=== PATIENT | male | born 1935 | race Caucasian/White ===

== ENCOUNTER 2018-05-08 17:37 | Inpatient (IN) | payer MEDICARE, MEDICAID ==
--- NOTE | 2018-05-08 18:21 | ED Physician Chart ---
ED Chief Complaint/HPI - Patient Information Date Seen:: 05/08/18 Time Seen:: 18:00 Chief Complaint:: Depression History of Present Illness:: onset x 3 days of depression and sadness; no report of SIs, trauma, H//As, S/T, neck pain, C/P, dyspnea, abd. pain, A/N/V/D/C, fever, chills, or urinary s/s Historian:: Patient, EMS Review:: Nurse's Note Reviewed, Old Chart Reviewed, EMS run form Reviewed <Pancho Rodarte - Last Filed: 05/08/18 18:16> - Patient Information Allergies:: Allergies Allergy/AdvReac Type Severity Reaction Status Date / Time No Known Allergies Allergy Verified 05/08/18 19:14 <Torres Carson - Last Filed: 05/09/18 09:00> ED Review of Systems - Review of Systems General/Constitutional: No fever, No chills, No weight loss, No weakness, No diaphoresis, No edema, No loss of appetite Skin: No skin lesions, No rash, No bruising Head: No headache, No light-headedness Eyes: No loss of vision, No pain, No diplopia ENT: No earache, No nasal drainage, No sore throat, No tinnitus Neck: No neck pain, No swelling, No thyromegaly, No stiffness, No mass noted Cardio Vascular: No chest pain, No palpitations, No PND, No orthopnea, No edema Pulmonary: No SOB, No cough, No sputum, No wheezing GI: No nausea, No vomiting, No diarrhea, No pain, No melena, No hematochezia, No constipation, No hematemesis G/U: No dysuria, No frequency, No hematuria, No nacturia Musculoskeletal: No bone or joint pain, No back pain, No muscle pain Endocrine: No polyuria, No polydipsia Psychiatric: Prior psych history, Depression, No anxiety, No suicidal ideation, No homicidal ideation, No auditory hallucination, No visual hallucination Hematopoietic: No bruising, No lymphadenopathy Allergic/Immuno: No urticaria, No angioedema Neurological: No syncope, No focal symptoms, No weakness, No paresthesia, No headache, No seizure, No dizziness, No confusion, No vertigo <Pancho Rodarte - Last Filed: 05/08/18 18:16> ED Past Medical History - Past Medical History Obtainable: Yes Past Medical History: HTN, Dyslipidemia Family History: HTN Social History: Non Smoker, No Alcohol, No Drug Use, , Care Facility Surgical History: None Psychiatricy History: Depression Medication: Reviewed <Pancho Rodarte - Last Filed: 05/08/18 18:16> Family Medical History - Family Member Mother History Unknown: Yes <Torres Carson - Last Filed: 05/09/18 09:00> ED Physical Exam - Physical Examination General/Constitutional: Awake, Well-developed, well-nourished, Alert, No distress, GCS 15, Non-toxic appearing, Ambulatory Head: Atraumatic Eyes: Lids, conjuctiva normal, PERRL, EOMI Skin: Nl inspection, No rash, No skin lesions, No ecchymosis, Well hydrated, No lymphadenopathy ENMT: External ears, nose nl, TM canals nl, Nasal exam nl, Lips, teeth, gums nl , Oropharynx nl, Tonsils nl Neck: Nontender, Full ROM w/o pain, No JVD, No nuchal rigidity, No bruit, No mass, No stridor Respiratory: Nl effort/Exclusion, Clear to Auscultation, No Wheeze/Rhonchi/Rales Cardio Vascular: RRR, No murmur, gallop, rubs, NL S1 S2, Carotid/Femoral/Distal pulses equal bilaterally GI: No tenderness/rebounding/guarding, No organomegaly, No hernia, Normal BS's, Nondistended, No mass/bruits, No McBurney tenderness : No CVA tenderness Extremities: No tenderness or effusion, Full ROM, normal strength in all extremities, No edema, Normal digits & nails Neuro/Psych: Alert/oriented, DTR's symmetric, Normal sensory exam, Normal motor strength, Judgement/insight normal, Mood normal, Normal gait, No focal deficits Other Neuro/Psych comments:: MSE: + Psychomotor Retardation; no SIs; Mood/Affect: Labile Misc: Normal back, No paraspinal tenderness <Pancho Rodarte - Last Filed: 05/08/18 18:16> ED Labs/Radiology/EKG Results - Lab Results Results: Laboratory Tests 05/08/18 05/08/18 05/08/18 18:30 18:40 18:40 WBC 12.3 H RBC 3.69 L Hgb 11.0 L Hct 32.8 L MCV 89.0 MCH 29.9 MCHC Differential 33.6 RDW 15.8 Plt Count 448 H MPV 6.8 Neutrophils % 62.3 Lymphocytes % 28.6 Monocytes % 5.5 Eosinophils % 2.8 Basophils % 0.8 Sodium 138 Potassium 4.1 Chloride 106 Carbon Dioxide 22.1 Anion Gap 14.0 BUN 57 H Creatinine 2.4 H Est GFR ( Amer) TNP Est GFR (Non-Af Amer) TNP BUN/Creatinine Ratio 23.8 Glucose 147 H Calcium 8.9 Total Bilirubin 0.3 AST 74 H ALT 157 H Alkaline Phosphatase 85 Troponin I 0.01 Total Protein 7.4 Albumin 3.7 L Globulin 3.7 Albumin/Globulin Ratio 1.0 Triglycerides 102 Cholesterol 83 LDL Cholesterol Direct 54 L HDL Cholesterol 26 TSH Urine Source Urine Color Urine Clarity Urine pH Ur Specific [place] Urine Protein Urine Glucose (UA) Urine Ketones Urine Blood Urine Nitrate Urine Bilirubin Urine Urobilinogen Ur Leukocyte Esterase Urine RBC Urine WBC Ur Epithelial Cells Urine Bacteria Salicylates < 25.0 L Urine Opiates Screen Urine Methadone Screen Acetaminophen < 10.0 L Ur Barbiturates Screen Ur Tricyclics Screen Ur Phencyclidine Scrn Amphetamines Screen U Methamphetamines Scrn U Benzodiazepines Scrn U Cocaine Metab Screen U Cannabinoids Screen Ethyl Alcohol < 10 05/08/18 05/08/18 05/08/18 18:40 22:00 22:00 WBC RBC Hgb Hct MCV MCH MCHC Differential RDW Plt Count MPV Neutrophils % Lymphocytes % Monocytes % Eosinophils % Basophils % Sodium Potassium Chloride Carbon Dioxide Anion Gap BUN Creatinine Est GFR ( Amer) Est GFR (Non-Af Amer) BUN/Creatinine Ratio Glucose Calcium Total Bilirubin AST ALT Alkaline Phosphatase Troponin I Total Protein Albumin Globulin Albumin/Globulin Ratio Triglycerides Cholesterol LDL Cholesterol Direct HDL Cholesterol TSH 10.76 H Urine Source CLEAN C Urine Color YELLOW Urine Clarity HAZY Urine pH 5.5 Ur Specific [place] 1.020 Urine Protein NEGATIVE Urine Glucose (UA) NEGATIVE Urine Ketones NEGATIVE Urine Blood TRACE Urine Nitrate NEGATIVE Urine Bilirubin NEGATIVE Urine Urobilinogen 0.2 Ur Leukocyte Esterase MODERATE H Urine RBC 0-2 H Urine WBC 10-25 H Ur Epithelial Cells RARE Urine Bacteria MODERATE H Salicylates Urine Opiates Screen POSITIVE H Urine Methadone Screen NEGATIVE Acetaminophen Ur Barbiturates Screen NEGATIVE Ur Tricyclics Screen NEGATIVE Ur Phencyclidine Scrn NEGATIVE Amphetamines Screen NEGATIVE U Methamphetamines Scrn NEGATIVE U Benzodiazepines Scrn NEGATIVE U Cocaine Metab Screen NEGATIVE U Cannabinoids Screen NEGATIVE Ethyl Alcohol <Torres Carson - Last Filed: 05/09/18 09:00> ED Septic Shock - . Is Septic Shock (SBP<90, OR Lactate>4 mmol\L) present?: No <Pancho Rodarte - Last Filed: 05/08/18 18:16> ED Reassessment (Disposition) - Reassessment Reassessment Condition:: Improved - Diagnosis Diagnosis:: Depression; Medical Clearance <Pancho Rodarte - Last Filed: 05/08/18 18:16> - Reassessment Reassessment:: Due to evidence of UTI and dehydration, ordered NS 1L IV bolus and Rocephin 1g IV. Admit to [facility] for further evaluation and management. UTI will be followed as well. Reassessment Condition:: Improved - Diagnosis Diagnosis:: Leukocytosis Urinary tract infection Dehydration CKD Anemia, normocytic Hypothyroidism - Patient Disposition Discharge/Transfer:: [facility] w/in this hosp Admitting Medical Physician:: Van Camilo Admitting Psych Physician:: Glod Albright <Torres Carson - Last Filed: 05/09/18 09:00>
[2018-05-08 18:56] LABS: % BASOPHILS 0.8 % (0.0-2.0); % EOSINOPHILS 2.8 % (0.0-5.0); % LYMPHOCYTES 28.6 % (20.0-50.0); % MONOCYTES 5.5 % (2.0-10.0); % NEUTROPHILS 62.3 % (40.0-80.0); BASOPHILE ABSOLUTE 0.1 Th/cumm (0-0.2); EOSINOPHILE ABSOLUTE 0.3 Th/cmm (0.1-0.4); HEMATOCRIT 32.8 % (41.0-60); LYMPHOCYTE ABSOLUTE 3.5 Th/cmm (1.5-3.0); MEAN CORPUSCULAR HEMOGLOBIN 29.9 pg (27.0-31.0); MEAN CORPUSCULAR HGB CONC 33.6 pg (28.0-36.0); MEAN PLATELET VOLUME 6.8 fl; MONOCYTE ABSOLUTE 0.7 Th/cmm (0.3-1.0); NEUTROPHILE ABSOLUTE 7.7 Th/cmm (1.8-8.0); PLATELET COUNT 448 Th/cmm (150-400); RED BLOOD COUNT 3.69 Mil/cmm (3.80-5.80); RED CELL DISTRIBUTION WIDTH 15.8 % (11.5-20.0); WHITE BLOOD COUNT 12.3 Th/cmm (4.8-10.8)
[2018-05-08 19:06] LABS: ALBUMIN 3.7 gm/dL (4.2-5.5); ALKALINE PHOSPHATASE 85 U/L (34-104); BILIRUBIN,TOTAL 0.3 mg/dL (0.3-1.0); BUN - UREA NITROGEN 57 mg/dL (7-25); CALCIUM SERUM 8.9 mg/dL (8.6-10.3); CARBON DIOXIDE 22.1 mEq/L (21.0-31.0); CHLORIDE 106 mEq/L (98-107); CHOLESTEROL 83 mg/dL (<200); CREATININE - SERUM 2.4 mg/dL (0.7-1.3); GLUCOSE 147 mg/dL (70-105); HDL -HIGH DENSITY LIPOPROTEIN 26 mg/dL (23-92); POTASSIUM SERUM 4.1 mEq/L (3.5-5.1); SGOT 74 U/L (13-39); SGPT/ALT 157 U/L (7-52); SODIUM SERUM 138 mEq/L (136-145); TOTAL PROTEIN,SERUM 7.4 gm/dL (6.0-8.3); TRIGLYCERIDES 102 mg/dL (<150)
[2018-05-08 19:18] LABS: ACETAMINOPHEN < 10.0 ug/mL (10.0-30.0); SALICYLATES (ASPIRIN) < 25.0 mg/L (30.0-100.0)
[2018-05-08] MEDS ORDERED: Sodium Chloride 0.9% 1,000 ML IV ONE (20:56)
[2018-05-08] MEDS ORDERED: cefTRIAXone 1 GM in Sodium Chloride 0.9% 50 ML IV ONE (20:56)
[2018-05-08 23:20] LABS: URINE SOURCE CLEAN C
[2018-05-08 23:27] LABS: URINE BILIRUBIN NEGATIVE (NEGATIVE); URINE BLOOD TRACE (NEGATIVE); URINE GLUCOSE (UA) NEGATIVE (NEGATIVE); URINE KETONE NEGATIVE (NEGATIVE); URINE LEUKOCYTE ESTERASE MODERATE (NEGATIVE); URINE MICROSCOPIC INDICATED? YES; URINE NITRATE NEGATIVE (NEGATIVE); URINE PH 5.5 (4.6 - 8.0); URINE PROTEIN NEGATIVE (NEGATIVE); URINE UROBILINOGEN 0.2 E.U./dL (0.2 - 1.0)
[2018-05-08 23:31] LABS: URINE CLARITY HAZY (CLEAR); URINE COLOR YELLOW
[2018-05-08 23:33] LABS: URINE RBC 0-2 /hpf (0-5)
[2018-05-08 23:35] LABS: URINE BACTERIA MODERATE /hpf (NONE SEEN); URINE EPITHELIAL CELLS RARE /lpf (FEW)
[2018-05-08 23:36] LABS: AMPHETAMINE URINE NEGATIVE (NEGATIVE); BARBITURATES URINE NEGATIVE (NEGATIVE); BENZODIAZEPINES QUAL URINE NEGATIVE (NEGATIVE); CANNABINOID THC NEGATIVE (NEGATIVE); COCAINE METABOLITE QUAL URINE NEGATIVE (NEGATIVE); METHADONE URINE NEGATIVE (NEGATIVE); METHAMPHETAMINES QUAL URINE NEGATIVE (NEGATIVE); OPIATES (MORPHINE) QUAL. URINE POSITIVE (NEGATIVE); PHENCYCLIDINE (PCP) URINE NEGATIVE (NEGATIVE); TRICYCLICS (TCA) QUAL. URINE NEGATIVE (NEGATIVE)
[2018-05-09 00:12] VITALS: BP 138/61
[2018-05-09] MEDS ORDERED: Maalox 30 mL Cup PO PRN (00:29)
[2018-05-09] MEDS ORDERED: Magnesium Hydroxide (MOM) 30 mL UDC PO PRN (00:29)
[2018-05-09] MEDS ORDERED: Hydrocodone/APAP 10 mg/325 mg Tab PO PRN (00:30)
--- NOTE | 2018-05-09 06:13 | History and Physical ---
History of Present Illness - HPI Chief Complaint: Psychosis HPI: 82 y/o male who presents to [facility] for change in behavior and 3 day history of depression. Patient was sent to ER for further evaluation and treatment. While in the ER patient had initial labwork which revealed the following. WBC 12.3 H/H 11.0/32.8 plat 448K Na 138 K 4.1 Bun/Cr 57/2.4 glu 147 AST 74 ALT 157 TSH 10.76 UA leuko moderate RBC 0-2 WBC 10-25 bacteria moderate PHM HTN, Hyperlipidemia, Depression Patient was subsequently admitted for further evaluation and treatment. Vital Signs: Last Vital Signs Temp 97.8 F 05/09/18 00:05 Pulse 60 05/09/18 00:05 Resp 20 05/09/18 00:05 BP 138/61 05/09/18 00:12 Pulse Ox 96 05/09/18 00:05 Past Medical History Cardiovascular: Report: HTN, Hyperlipidemia Pulmonary: Report: No Pertinent Hx OUTPATIENT PHYSICAL THERAPIST: Report: No Pertinent Hx GI: Report: No Pertinent Hx Psych: Report: Depression Musculoskeletal: Report: No Pertinent Hx Rheumatologic: Report: No pertinent Hx Infectious Disease: Report: No Pertinent Hx Renal/: Report: No Pertinent Hx Endocrine: Report: No Pertinent Hx Dermatology: Report: No Pertinent Hx - Past Surgical History Past Surgical History: No pertinent Hx Family Medical History - Family Member Mother History Unknown: Yes Social History Smoke: No Alcohol: None Drugs: None Lives: [facility] - Medications Home Medications: Home Medication Medication Instructions Recorded Type Acetaminophen [Tylenol] 2 tab PO Q6HR PRN 05/08/18 History Apixaban [Eliquis] 1 tab PO BID 05/08/18 History Ascorbic Acid [Vitamin C] 1 tab PO TID 05/08/18 History Aspirin [Adult Aspirin] 1 tab PO DAILY 05/08/18 History Atorvastatin Calcium [Lipitor] 40 mg PO DAILY 05/08/18 History Bisacodyl [Dulcolax 10 Mg Supp] 1 supp.rect RC DAILY PRN 05/08/18 History Carvedilol [Coreg] 1 tab PO BID 05/08/18 History Citalopram Hydrobromide 40 mg PO DAILY 05/08/18 History [Citalopram HBr] Dronedarone HCl [Multaq] 1 tab PO BID 05/08/18 History Ferrous Sulfate 1 tab PO TID 05/08/18 History Furosemide [Lasix] 1 tab PO DAILY 05/08/18 History Gabapentin 100 mg PO TID 05/08/18 History Hydrocodone/APAP 10 mg/325 mg 1 tab PO Q4HR PRN 05/08/18 History [[place] 10 mg/325 mg] Insulin Glargine,Hum.rec.anlog 10 units SUBQ HS 05/08/18 History [Lantus Solostar] Isosorb Dinit/Hydralazine HCl 1 each PO BID 05/08/18 History [Bidil Tablet] Levothyroxine [Synthroid] 1 tab PO DAILY 05/08/18 History Magnesium Hydroxide [Milk of 30 ml PO DAILY 05/08/18 History Magnesia] Pantoprazole [Protonix] 40 mg PO DAILY 05/08/18 History Potassium Chloride 1 cap PO DAILY 05/08/18 History Simethicone [Gas Relief] 1 tab PO TID 05/08/18 History Trazodone HCl 1 tab PO HS 05/08/18 History - Allergies Allergies/Adverse Reactions: Allergies Allergy/AdvReac Type Severity Reaction Status Date / Time No Known Allergies Allergy Verified 05/08/18 19:14 Review of Systems - Review of Systems Constitutional: Report: Weakness, Malaise Eyes: Report: No Significant ENT: Report: No Significant Respiratory: Report: No Significant Cardiovascular: Report: No Significant, Orthopnea Genitourinary: Report: No Significant Musculoskeletal: Report: No Significant Skin: Report: No Significant Neurological: Report: Weakness Physical Exam - Physical Exam HEENT: Report: Ears Nose Throat within normal limits, Pharnyx within normal limits Neck: Report: Within normal limits Cardiovascular Systems: Report: +s1/s2 noted, Regular, Rate and Rhythm Respiratory: Report: Breath Sounds are within normal limits Abdomen: Report: Non-tender to palpation Back: Report: Inspection of back is within normal limits. Extremities: Report: Non-tender to palpation. Skin: Report: Color of skin is within normal limits Neuro/Psych: Report: Mood affect is within normal limits, A+Ox3 - Lab Results All Lab Results last 24 hours: Laboratory Results - last 24 hr 05/08/18 05/08/18 05/08/18 18:30 18:40 18:40 WBC 12.3 H RBC 3.69 L Hgb 11.0 L Hct 32.8 L MCV 89.0 MCH 29.9 MCHC Differential 33.6 RDW 15.8 Plt Count 448 H MPV 6.8 Neutrophils % 62.3 Lymphocytes % 28.6 Monocytes % 5.5 Eosinophils % 2.8 Basophils % 0.8 Sodium 138 Potassium 4.1 Chloride 106 Carbon Dioxide 22.1 Anion Gap 14.0 BUN 57 H Creatinine 2.4 H Est GFR ( Amer) TNP Est GFR (Non-Af Amer) TNP BUN/Creatinine Ratio 23.8 Glucose 147 H Calcium 8.9 Total Bilirubin 0.3 AST 74 H ALT 157 H Alkaline Phosphatase 85 Troponin I 0.01 Total Protein 7.4 Albumin 3.7 L Globulin 3.7 Albumin/Globulin Ratio 1.0 Triglycerides 102 Cholesterol 83 LDL Cholesterol Direct 54 L HDL Cholesterol 26 TSH Urine Source Urine Color Urine Clarity Urine pH Ur Specific [place] Urine Protein Urine Glucose (UA) Urine Ketones Urine Blood Urine Nitrate Urine Bilirubin Urine Urobilinogen Ur Leukocyte Esterase Urine RBC Urine WBC Ur Epithelial Cells Urine Bacteria Salicylates < 25.0 L Urine Opiates Screen Urine Methadone Screen Acetaminophen < 10.0 L Ur Barbiturates Screen Ur Tricyclics Screen Ur Phencyclidine Scrn Amphetamines Screen U Methamphetamines Scrn U Benzodiazepines Scrn U Cocaine Metab Screen U Cannabinoids Screen Ethyl Alcohol < 10 05/08/18 05/08/18 05/08/18 18:40 22:00 22:00 WBC RBC Hgb Hct MCV MCH MCHC Differential RDW Plt Count MPV Neutrophils % Lymphocytes % Monocytes % Eosinophils % Basophils % Sodium Potassium Chloride Carbon Dioxide Anion Gap BUN Creatinine Est GFR ( Amer) Est GFR (Non-Af Amer) BUN/Creatinine Ratio Glucose Calcium Total Bilirubin AST ALT Alkaline Phosphatase Troponin I Total Protein Albumin Globulin Albumin/Globulin Ratio Triglycerides Cholesterol LDL Cholesterol Direct HDL Cholesterol TSH 10.76 H Urine Source CLEAN C Urine Color YELLOW Urine Clarity HAZY Urine pH 5.5 Ur Specific [place] 1.020 Urine Protein NEGATIVE Urine Glucose (UA) NEGATIVE Urine Ketones NEGATIVE Urine Blood TRACE Urine Nitrate NEGATIVE Urine Bilirubin NEGATIVE Urine Urobilinogen 0.2 Ur Leukocyte Esterase MODERATE H Urine RBC 0-2 H Urine WBC 10-25 H Ur Epithelial Cells RARE Urine Bacteria MODERATE H Salicylates Urine Opiates Screen POSITIVE H Urine Methadone Screen NEGATIVE Acetaminophen Ur Barbiturates Screen NEGATIVE Ur Tricyclics Screen NEGATIVE Ur Phencyclidine Scrn NEGATIVE Amphetamines Screen NEGATIVE U Methamphetamines Scrn NEGATIVE U Benzodiazepines Scrn NEGATIVE U Cocaine Metab Screen NEGATIVE U Cannabinoids Screen NEGATIVE Ethyl Alcohol - Assessment Assessment: psychosis UTI Hypothyroidism depression htn hyperlipidemia elevated LFTs - Plan Plan: admit to [facility] will order Keflex PO Levothyroxine PO
[2018-05-09] MEDS: Pantoprazole 40 mg EC Tab PO SCH (06:42)
[2018-05-09] MEDS ORDERED: Levothyroxine 0.1 Mg Tab PO SCH (07:30)
[2018-05-09] MEDS ORDERED: ISOSORB DINIT PO SCH (09:00)
[2018-05-09] MEDS ORDERED: DRONEDARONE HCL PO SCH (09:00)
[2018-05-09] MEDS ORDERED: HYDRALAZINE HCL PO SCH (09:00)
[2018-05-09] MEDS ORDERED: Non-Formulary Item 1 EA (Apixaban [Eliquis] 1 TAB) PO SCH (09:00)
[2018-05-09] MEDS: Magnesium Hydroxide (MOM) 30 mL UDC PO SCH (09:55)
[2018-05-09] MEDS: Potassium Chloride 10 mEq ER Tab PO SCH (09:56)
[2018-05-09] MEDS: Ferrous Sulfate 325 MG TAB PO SCH ×3 (09:56→21:20)
[2018-05-09] MEDS: Multivitamin Tab PO SCH (09:56)
[2018-05-09] MEDS: Insulin Detemir 100 units/mL 10mL Vial SUBQ SCH (21:21)
--- NOTE | 2018-05-10 02:15 | Psychiatric Evaluation ---
DATE OF SERVICE: 05/09/2018 PSYCHIATRIC PROGRESS NOTE IDENTIFYING DATA: The patient is an 82-year-old male, resident of [facility]. Information was obtained by directly interviewing the patient as well as reviewing the admission papers. JUSTIFICATION OF HOSPITALIZATION: The patient is admitted here for depression. 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 The patient is also reporting that he is not sleeping well and appetite is also noted to be very poor. The patient is stated that he is getting easily frustrated. The patient's coping skills at this time are noted to be very poor. The patient's insight and judgment are also noted to be impaired. The patient has been having difficult time to cope with the stress. The patient is stating that he has been trying his best, but lately the depression has been getting worse and hence is admitted over here for stabilization. PAST PSYCHIATRIC HISTORY: Details are not known. MEDICAL HISTORY AND PHYSICAL EXAMINATION: Requested to be done by Dr. Camilo. SUBSTANCE ABUSE HISTORY: None. PHYSICAL OR SEXUAL ABUSE HISTORY: None. LEGAL PROBLEMS: None at this time. STRENGTH AND ASSETS: The patient is motivated. MENTAL STATUS EXAMINATION: The patient is an 82-year-old, looking his stated age, thin built, superficially cooperative. Eye contact is noted to be poor. Mood is noted to be irritable. Affect is constricted. Insight and judgment at this time are noted to be still impaired. Impulse control is noted to be poor. Coping skills are also noted to be very poor. The patient has feelings of helplessness and hopelessness. The patient is having difficult time to cope with the stress. The patient has suicidal ideation. Homicidal ideation is noted. The patient denies any auditory hallucinations. No delusions are noted. The patient is alert and aware that he is in the hospital. Short-term memory is noted to be poor, but long-term memory is noted to be intact. DIAGNOSTIC IMPRESSION: AXIS I: Major depressive disorder, recurrent, severe. AXIS II: None. AXIS III: As per the primary care physician. IMMEDIATE TREATMENT PLAN: The patient is going to be observed on the inpatient unit. Provided with supportive psychotherapy. The patient is going to be closely monitored. Once stabilized, the patient is going to be discharged to [facility] to be followed up on an outpatient basis. JOB# [id number]
--- NOTE | 2018-05-10 06:07 | General Progress Note ---
Subjective - Review of Systems Service Date: 05/10/18 Subjective: Patient is awake, alert, afebrile VS T 97.3 P 60 R 20 BP 138/53 Objective - Results Result Diagrams: 05/08/18 18:40 05/08/18 18:40 Recent Labs: Laboratory Last Values WBC 12.3 Th/cmm (4.8-10.8) H 05/08/18 18:40 RBC 3.69 Mil/cmm (3.80-5.80) L 05/08/18 18:40 Hgb 11.0 gm/dL (12-16) L 05/08/18 18:40 Hct 32.8 % (41.0-60) L 05/08/18 18:40 MCV 89.0 fl (80-99) 05/08/18 18:40 MCH 29.9 pg (27.0-31.0) 05/08/18 18:40 MCHC Differential 33.6 pg (28.0-36.0) 05/08/18 18:40 RDW 15.8 % (11.5-20.0) 05/08/18 18:40 Plt Count 448 Th/cmm (150-400) H 05/08/18 18:40 MPV 6.8 fl 05/08/18 18:40 Neutrophils % 62.3 % (40.0-80.0) 05/08/18 18:40 Lymphocytes % 28.6 % (20.0-50.0) 05/08/18 18:40 Monocytes % 5.5 % (2.0-10.0) 05/08/18 18:40 Eosinophils % 2.8 % (0.0-5.0) 05/08/18 18:40 Basophils % 0.8 % (0.0-2.0) 05/08/18 18:40 Sodium 138 mEq/L (136-145) 05/08/18 18:40 Potassium 4.1 mEq/L (3.5-5.1) 05/08/18 18:40 Chloride 106 mEq/L (98-107) 05/08/18 18:40 Carbon Dioxide 22.1 mEq/L (21.0-31.0) 05/08/18 18:40 Anion Gap 14.0 (7.0-16.0) 05/08/18 18:40 BUN 57 mg/dL (7-25) H 05/08/18 18:40 Creatinine 2.4 mg/dL (0.7-1.3) H 05/08/18 18:40 Est GFR ( Amer) TNP 05/08/18 18:40 Est GFR (Non-Af Amer) TNP 05/08/18 18:40 BUN/Creatinine Ratio 23.8 05/08/18 18:40 Glucose 147 mg/dL (70-105) H 05/08/18 18:40 POC Glucose 150 MG/DL (70 - 105) H 05/09/18 21:07 Calcium 8.9 mg/dL (8.6-10.3) 05/08/18 18:40 Total Bilirubin 0.3 mg/dL (0.3-1.0) 05/08/18 18:40 AST 74 U/L (13-39) H 05/08/18 18:40 ALT 157 U/L (7-52) H 05/08/18 18:40 Alkaline Phosphatase 85 U/L (34-104) 05/08/18 18:40 Ammonia 41 umol/L (16-53) 05/09/18 07:50 Troponin I 0.01 ng/mL (0.01-0.05) 05/08/18 18:30 Total Protein 7.4 gm/dL (6.0-8.3) 05/08/18 18:40 Albumin 3.7 gm/dL (4.2-5.5) L 05/08/18 18:40 Globulin 3.7 gm/dL 05/08/18 18:40 Albumin/Globulin Ratio 1.0 (1.0-1.8) 05/08/18 18:40 Triglycerides 102 mg/dL (<150) 05/08/18 18:40 Cholesterol 83 mg/dL (<200) 05/08/18 18:40 LDL Cholesterol Direct 54 mg/dL (75-193) L 05/08/18 18:40 HDL Cholesterol 26 mg/dL (23-92) 05/08/18 18:40 TSH 10.76 uIU/ml (0.34-5.60) H 05/08/18 18:40 Urine Source CLEAN C 05/08/18 22:00 Urine Color YELLOW 05/08/18 22:00 Urine Clarity HAZY (CLEAR) 05/08/18 22:00 Urine pH 5.5 (4.6 - 8.0) 05/08/18 22:00 Ur Specific [place] 1.020 (1.005-1.030) 05/08/18 22:00 Urine Protein NEGATIVE mg/dL (NEGATIVE) 05/08/18 22:00 Urine Glucose (UA) NEGATIVE mg/dL (NEGATIVE) 05/08/18 22:00 Urine Ketones NEGATIVE mg/dL (NEGATIVE) 05/08/18 22:00 Urine Blood TRACE (NEGATIVE) 05/08/18 22:00 Urine Nitrate NEGATIVE (NEGATIVE) 05/08/18 22:00 Urine Bilirubin NEGATIVE (NEGATIVE) 05/08/18 22:00 Urine Urobilinogen 0.2 E.U./dL (0.2 - 1.0) 05/08/18 22:00 Ur Leukocyte Esterase MODERATE (NEGATIVE) H 05/08/18 22:00 Urine RBC 0-2 /hpf (0-5) H 05/08/18 22:00 Urine WBC 10-25 /hpf (0-5) H 05/08/18 22:00 Ur Epithelial Cells RARE /lpf (FEW) 05/08/18 22:00 Urine Bacteria MODERATE /hpf (NONE SEEN) H 05/08/18 22:00 Salicylates < 25.0 mg/L (30.0-100.0) L 05/08/18 18:40 Urine Opiates Screen POSITIVE (NEGATIVE) H 05/08/18 22:00 Urine Methadone Screen NEGATIVE (NEGATIVE) 05/08/18 22:00 Acetaminophen < 10.0 ug/mL (10.0-30.0) L 05/08/18 18:40 Ur Barbiturates Screen NEGATIVE (NEGATIVE) 05/08/18 22:00 Ur Tricyclics Screen NEGATIVE (NEGATIVE) 05/08/18 22:00 Ur Phencyclidine Scrn NEGATIVE (NEGATIVE) 05/08/18 22:00 Amphetamines Screen NEGATIVE (NEGATIVE) 05/08/18 22:00 U Methamphetamines Scrn NEGATIVE (NEGATIVE) 05/08/18 22:00 U Benzodiazepines Scrn NEGATIVE (NEGATIVE) 05/08/18 22:00 U Cocaine Metab Screen NEGATIVE (NEGATIVE) 05/08/18 22:00 U Cannabinoids Screen NEGATIVE (NEGATIVE) 05/08/18 22:00 Ethyl Alcohol < 10 mg/dL (0-10) 05/08/18 18:40 - Physical Exam Vitals and I&O: Vital Signs Temp 97.3 F 05/09/18 15:23 Pulse 60 05/09/18 15:23 Resp 20 05/09/18 15:23 BP 138/53 05/09/18 15:23 Pulse Ox 99 05/09/18 15:23 Intake & Output 05/09/18 05/09/18 05/10/18 06:59 18:59 06:59 Intake Total 120 Balance 120 Intake: Oral 120 Other: # Voids 3 Active Medications: Current Medications Acetaminophen (Tylenol) 650 mg PO Q4HR PRN PRN Reason: Mild Pain / Temp above 100 Stop: 07/08/18 00:28 Acetaminophen (Tylenol) 650 mg PO Q6HR PRN PRN Reason: Pain (Mild) Stop: 07/08/18 06:17 Acetaminophen/Hydrocodone Bitart ([place] 10 Mg/325 Mg) 1 tab PO Q4HR PRN PRN Reason: Pain (Moderate) Stop: 07/08/18 00:29 Al Hydrox/Mg Hydrox/Simethicone (Maalox) 30 ml PO Q4HR PRN PRN Reason: GI DISTRESS Stop: 07/08/18 00:28 Ascorbic Acid (Vitamin C) 500 mg PO TID [facility] Stop: 07/08/18 08:59 Last Admin: 05/09/18 21:21 Dose: 500 mg Aspirin (Ecotrin) 81 mg PO DAILY [facility] Stop: 07/08/18 08:59 Last Admin: 05/09/18 09:56 Dose: 81 mg Atorvastatin Calcium (Lipitor) 40 mg PO DAILY [facility] Stop: 07/08/18 08:59 Last Admin: 05/09/18 09:55 Dose: 40 mg Bisacodyl (Dulcolax 10 Mg Supp) 10 mg RC DAILY PRN PRN Reason: Constipation Stop: 07/08/18 00:29 Carvedilol (Coreg) 6.25 mg PO BIDBRS [facility] Stop: 07/08/18 07:59 Last Admin: 05/09/18 09:57 Dose: Not Given Cephalexin Monohydrate (Keflex) 500 mg PO QID [facility] Stop: 07/08/18 08:59 Last Admin: 05/09/18 21:20 Dose: 500 mg Citalopram Hydrobromide (Celexa) 40 mg PO DAILY [facility] Stop: 07/08/18 08:59 Ferrous Sulfate (Iron) 325 mg PO TID [facility] Stop: 07/08/18 08:59 Last Admin: 05/09/18 21:20 Dose: 325 mg Furosemide (Lasix) 40 mg PO DAILY [facility] Stop: 07/08/18 08:59 Last Admin: 05/09/18 09:56 Dose: 40 mg Gabapentin (Neurontin) 100 mg PO TID [facility] Stop: 07/08/18 08:59 Last Admin: 05/09/18 21:21 Dose: 100 mg Insulin Detemir (Levemir Insulin) 10 units SUBQ HS [facility] Stop: 07/08/18 20:59 Last Admin: 05/09/18 21:21 Dose: 10 unit Levothyroxine Sodium (Synthroid) 0.125 mg PO DAILY@0730 [facility] Stop: 07/08/18 07:29 Magnesium Hydroxide (Milk Of Magnesia) 30 ml PO HS PRN PRN Reason: Constipation Magnesium Hydroxide (Milk Of Magnesia) 30 ml PO DAILY [facility] Stop: 07/08/18 08:59 Last Admin: 05/09/18 09:55 Dose: 30 ml Miscellaneous (Apixaban [Eliquis]) 1 tab PO BID [facility] Stop: 07/08/18 08:59 Miscellaneous (Dronedarone Hcl [Multaq]) 1 tab PO BID [facility] Stop: 07/08/18 08:59 Miscellaneous (Isosorb Dinit/Hydralazine Hcl [Bidil Tablet]) 1 each PO BID [facility] Stop: 07/08/18 08:59 Multivitamins/Vitamin C (Theragran) 1 tab PO DAILY [facility] Stop: 07/08/18 08:59 Last Admin: 05/09/18 09:56 Dose: 1 tab Pantoprazole Sodium (Protonix) 40 mg PO DAILY@0730 [facility] Stop: 07/08/18 07:29 Last Admin: 05/09/18 06:42 Dose: 40 mg Potassium Chloride (Klor-Con) 10 meq PO DAILY [facility] Stop: 07/08/18 08:59 Last Admin: 05/09/18 09:56 Dose: 10 meq Simethicone (Mylicon) 80 mg PO TID [facility] Stop: 07/08/18 08:59 Last Admin: 05/09/18 21:21 Dose: 80 mg Trazodone HCl (Desyrel) 50 mg PO HS [facility]; Protocol Stop: 07/08/18 20:59 Zolpidem Tartrate (Ambien) 5 mg PO HS PRN PRN Reason: Insomnia Stop: 07/08/18 00:28 General: Alert, Oriented x3, No acute distress HEENT: Atraumatic, PERRLA Neck: Supple Cardiovascular: Regular rate, Normal S1, Normal S2 Lungs: Clear to auscultation Abdomen: Bowel sounds, Soft Extremities: no Clubbing, no Cyanosis, no Edema Neurological: Normal gait Assessment/Plan - Assessment Assessment: psychosis UTI Hypothyroidism depression htn hyperlipidemia elevated LFTs - Plan Plan: admit to the medical center will order Keflex PO Levothyroxine PO
[2018-05-10] MEDS: Pantoprazole 40 mg EC Tab PO SCH (06:33)
[2018-05-10] MEDS: Levothyroxine 0.125 Mg Tab PO SCH (06:46)
[2018-05-10] MEDS: Multivitamin Tab PO SCH (09:37)
[2018-05-10] MEDS: Potassium Chloride 10 mEq ER Tab PO SCH (09:38)
[2018-05-10] MEDS: Ferrous Sulfate 325 MG TAB PO SCH ×3 (09:43→20:14)
[2018-05-10] MEDS: Magnesium Hydroxide (MOM) 30 mL UDC PO SCH (09:51)
[2018-05-10 10:17] LABS: HEP A AB IGM Negative (Negative); HEP B CORE IGM Negative (Negative); HEP B SURFACE AG QL Negative (Negative); HEP C ANTIBODY <0.1 s/co ratio (0.0-0.9)
--- NOTE | 2018-05-10 17:43 | Consultation ---
DATE OF CONSULTATION: 05/10/2018 REFERRING PHYSICIAN: Bello Rodriguez M.D. TYPE OF CONSULTATION: Psychology. HISTORY OF PRESENT ILLNESS: The patient is an 82-year-old male. The patient is a resident of [facility]. The following is by review of the medical record and by the patient's self-report. The patient is being admitted for depression. Upon interview, the patient stated that he is feeling depressed since he lost the use of his legs. The staff at the patient's facility report that the patient had become easily frustrated and confused. The patient had been depressed for the last several months. The patient stated that he is trying to cope with his depression, but feels that it is worsening. The patient did not answer the question about suicidal ideation, plan or intention or wish to . PAST MEDICAL HISTORY: Please see history and physical by Dr. Camilo. PAST PSYCHIATRIC HISTORY: Records are unavailable. Details are unknown. The staff at the patient's facility report no previous hospitalizations. The patient's facility reported the patient has been depressed on and off for approximately 2 years. The patient is under the care of a psychiatrist at his facility. SUBSTANCE ABUSE HISTORY: The patient denied any history of alcohol, tobacco, or illicit drug use. PSYCHOSOCIAL HISTORY: The patient did not answer questions about occupational or educational history or religion affiliation. The patient denied any history of physical or sexual abuse. The patient denied any current legal problems. The patient states that he has some friends at his facility, but was not specific about family members being involved in his care. MENTAL STATUS EXAMINATION: The patient appears to be his stated age. The patient's attitude is superficially cooperative. Eye contact is poor. Speech is slow and delayed. Mood is irritable. Affect is constricted. Thought process shows to be depressogenic and focused on the patient's medical condition. The patient denied any auditory or visual hallucinations. The patient does have passive suicidal ideation. The patient admits feelings of helplessness and hopelessness. The patient denied any homicidal ideation, plan, or intention. The patient's behavior has been compliant so far according to the staff. Impulse control is limited. Concentration is poor. Sensorium is alert and oriented to self and place. The patient was able to repeat 3 items given to him the second time. The patient was unable to recall 2 out of the 3 items after several minutes. The patient was able to give his correct age and date of . Immediate memory and short term memory are poor. Long-term memory seems to be intact. The patient did not participate in the interpretation of proverbs. Insight is poor. Judgment is compromised. DIAGNOSTIC IMPRESSION: AXIS I: Major depressive disorder, recurrent, severe. AXIS II: Deferred. AXIS III: Per Dr. Camilo. TREATMENT PLAN: The patient has been seen by Dr. Rodriguez for psychiatric evaluation and for the management of the patient's psychotropic medications. We will provide supportive psychotherapy to include coping strategies for phase of life issues. We will provide motivational enhancement for the patient to become compliant and to stay compliant with all aspects of his care and treatment. We will provide cognitive behavioral therapy to reduce the patient's depression. We will continue to provide supportive psychotherapy throughout the patient's hospital stay. We will provide daily opportunities for the patient to verbally contract for safety with no self-harm or harm to others. We will follow up in 2 to 3 days as ordered for treatment. Thank you, Dr. Rodriguez, for this consult and the opportunity to participate in this patient's care. [facility]# [id number]
[2018-05-10] MEDS: Insulin Detemir 100 units/mL 10mL Vial SUBQ SCH (20:14)
--- NOTE | 2018-05-11 02:27 | Progress Notes ---
DATE: 05/10/2018 PSYCHIATRIC PROGRESS NOTE SUMMARY: Staff was spoken to. The patient is interviewed. Mood is noted to be depressed. Affect is constricted. The patient is isolative and withdrawn. Insight and judgment are noted to be still impaired. Impulse control is noted to be poor. The patient's coping skills are also noted to be very poor. The patient is feeling frustrated. The patient is stating that mainly losing the limb is the one that has been causing all the problems and he states that being on 40 mg of Celexa is not doing anything. The patient has been provided information with regards to adding Abilify to the medication, and once the patient makes decision, the patient is going to be started on Abilify to augment the effect of Celexa and followed up. JOB# [id number]
--- NOTE | 2018-05-11 06:00 | General Progress Note ---
Subjective - Review of Systems Service Date: 05/11/18 Subjective: Patient is awake, alert, afebrile VS T 98.1 P 60 R 18 BP 119/61 Objective - Results Result Diagrams: 05/08/18 18:40 05/08/18 18:40 Recent Labs: Laboratory Last Values WBC 12.3 Th/cmm (4.8-10.8) H 05/08/18 18:40 RBC 3.69 Mil/cmm (3.80-5.80) L 05/08/18 18:40 Hgb 11.0 gm/dL (12-16) L 05/08/18 18:40 Hct 32.8 % (41.0-60) L 05/08/18 18:40 MCV 89.0 fl (80-99) 05/08/18 18:40 MCH 29.9 pg (27.0-31.0) 05/08/18 18:40 MCHC Differential 33.6 pg (28.0-36.0) 05/08/18 18:40 RDW 15.8 % (11.5-20.0) 05/08/18 18:40 Plt Count 448 Th/cmm (150-400) H 05/08/18 18:40 MPV 6.8 fl 05/08/18 18:40 Neutrophils % 62.3 % (40.0-80.0) 05/08/18 18:40 Lymphocytes % 28.6 % (20.0-50.0) 05/08/18 18:40 Monocytes % 5.5 % (2.0-10.0) 05/08/18 18:40 Eosinophils % 2.8 % (0.0-5.0) 05/08/18 18:40 Basophils % 0.8 % (0.0-2.0) 05/08/18 18:40 Sodium 138 mEq/L (136-145) 05/08/18 18:40 Potassium 4.1 mEq/L (3.5-5.1) 05/08/18 18:40 Chloride 106 mEq/L (98-107) 05/08/18 18:40 Carbon Dioxide 22.1 mEq/L (21.0-31.0) 05/08/18 18:40 Anion Gap 14.0 (7.0-16.0) 05/08/18 18:40 BUN 57 mg/dL (7-25) H 05/08/18 18:40 Creatinine 2.4 mg/dL (0.7-1.3) H 05/08/18 18:40 Est GFR ( Amer) TNP 05/08/18 18:40 Est GFR (Non-Af Amer) TNP 05/08/18 18:40 BUN/Creatinine Ratio 23.8 05/08/18 18:40 Glucose 147 mg/dL (70-105) H 05/08/18 18:40 POC Glucose 192 MG/DL (70 - 105) H 05/10/18 19:31 Calcium 8.9 mg/dL (8.6-10.3) 05/08/18 18:40 Total Bilirubin 0.3 mg/dL (0.3-1.0) 05/08/18 18:40 AST 74 U/L (13-39) H 05/08/18 18:40 ALT 157 U/L (7-52) H 05/08/18 18:40 Alkaline Phosphatase 85 U/L (34-104) 05/08/18 18:40 Ammonia 41 umol/L (16-53) 05/09/18 07:50 Troponin I 0.01 ng/mL (0.01-0.05) 05/08/18 18:30 Total Protein 7.4 gm/dL (6.0-8.3) 05/08/18 18:40 Albumin 3.7 gm/dL (4.2-5.5) L 05/08/18 18:40 Globulin 3.7 gm/dL 05/08/18 18:40 Albumin/Globulin Ratio 1.0 (1.0-1.8) 05/08/18 18:40 Triglycerides 102 mg/dL (<150) 05/08/18 18:40 Cholesterol 83 mg/dL (<200) 05/08/18 18:40 LDL Cholesterol Direct 54 mg/dL (75-193) L 05/08/18 18:40 HDL Cholesterol 26 mg/dL (23-92) 05/08/18 18:40 TSH 10.76 uIU/ml (0.34-5.60) H 05/08/18 18:40 Urine Source CLEAN C 05/08/18 22:00 Urine Color YELLOW 05/08/18 22:00 Urine Clarity HAZY (CLEAR) 05/08/18 22:00 Urine pH 5.5 (4.6 - 8.0) 05/08/18 22:00 Ur Specific [place] 1.020 (1.005-1.030) 05/08/18 22:00 Urine Protein NEGATIVE mg/dL (NEGATIVE) 05/08/18 22:00 Urine Glucose (UA) NEGATIVE mg/dL (NEGATIVE) 05/08/18 22:00 Urine Ketones NEGATIVE mg/dL (NEGATIVE) 05/08/18 22:00 Urine Blood TRACE (NEGATIVE) 05/08/18 22:00 Urine Nitrate NEGATIVE (NEGATIVE) 05/08/18 22:00 Urine Bilirubin NEGATIVE (NEGATIVE) 05/08/18 22:00 Urine Urobilinogen 0.2 E.U./dL (0.2 - 1.0) 05/08/18 22:00 Ur Leukocyte Esterase MODERATE (NEGATIVE) H 05/08/18 22:00 Urine RBC 0-2 /hpf (0-5) H 05/08/18 22:00 Urine WBC 10-25 /hpf (0-5) H 05/08/18 22:00 Ur Epithelial Cells RARE /lpf (FEW) 05/08/18 22:00 Urine Bacteria MODERATE /hpf (NONE SEEN) H 05/08/18 22:00 Salicylates < 25.0 mg/L (30.0-100.0) L 05/08/18 18:40 Urine Opiates Screen POSITIVE (NEGATIVE) H 05/08/18 22:00 Urine Methadone Screen NEGATIVE (NEGATIVE) 05/08/18 22:00 Acetaminophen < 10.0 ug/mL (10.0-30.0) L 05/08/18 18:40 Ur Barbiturates Screen NEGATIVE (NEGATIVE) 05/08/18 22:00 Ur Tricyclics Screen NEGATIVE (NEGATIVE) 05/08/18 22:00 Ur Phencyclidine Scrn NEGATIVE (NEGATIVE) 05/08/18 22:00 Amphetamines Screen NEGATIVE (NEGATIVE) 05/08/18 22:00 U Methamphetamines Scrn NEGATIVE (NEGATIVE) 05/08/18 22:00 U Benzodiazepines Scrn NEGATIVE (NEGATIVE) 05/08/18 22:00 U Cocaine Metab Screen NEGATIVE (NEGATIVE) 05/08/18 22:00 U Cannabinoids Screen NEGATIVE (NEGATIVE) 05/08/18 22:00 Ethyl Alcohol < 10 mg/dL (0-10) 05/08/18 18:40 Hepatitis A IgM Ab Negative (Negative) 05/09/18 07:50 Hep Bs Antigen Negative (Negative) 05/09/18 07:50 Hep B Core IgM Ab Negative (Negative) 05/09/18 07:50 Hepatitis C Antibody <0.1 s/co ratio (0.0-0.9) 05/09/18 07:50 - Physical Exam Vitals and I&O: Vital Signs Temp 98.1 F 05/10/18 20:39 Pulse 60 05/10/18 20:39 Resp 18 05/10/18 20:39 BP 119/61 05/10/18 20:39 Pulse Ox 99 05/10/18 20:39 Intake & Output 05/10/18 05/10/18 05/11/18 06:59 18:59 06:59 Intake Total 120 1500 240 Output Total 1 Balance 120 1500 239 Intake: Oral 120 1500 240 Output: Urine/Stool Mix 1 Other: # Voids 3 3 1 # Bowel Movements 0 1 Active Medications: Current Medications Acetaminophen (Tylenol) 650 mg PO Q4HR PRN PRN Reason: Mild Pain / Temp above 100 Stop: 07/08/18 00:28 Acetaminophen (Tylenol) 650 mg PO Q6HR PRN PRN Reason: Pain (Mild) Stop: 07/08/18 06:17 Acetaminophen/Hydrocodone Bitart ([place] 10 Mg/325 Mg) 1 tab PO Q4HR PRN PRN Reason: Pain (Moderate) Stop: 07/08/18 00:29 Al Hydrox/Mg Hydrox/Simethicone (Maalox) 30 ml PO Q4HR PRN PRN Reason: GI DISTRESS Stop: 07/08/18 00:28 Amiodarone HCl (Cordarone) 200 mg PO DAILY [facility] Stop: 07/09/18 08:59 Last Admin: 05/10/18 09:39 Dose: 200 mg Ascorbic Acid (Vitamin C) 500 mg PO TID [facility] Stop: 07/08/18 08:59 Last Admin: 05/10/18 20:14 Dose: 500 mg Aspirin (Ecotrin) 81 mg PO DAILY [facility] Stop: 07/08/18 08:59 Last Admin: 05/10/18 09:43 Dose: 81 mg Atorvastatin Calcium (Lipitor) 40 mg PO DAILY [facility] Stop: 07/08/18 08:59 Last Admin: 05/10/18 09:39 Dose: 40 mg Bisacodyl (Dulcolax 10 Mg Supp) 10 mg RC DAILY PRN PRN Reason: Constipation Stop: 07/08/18 00:29 Carvedilol (Coreg) 6.25 mg PO BIDBRS MANN Stop: 07/08/18 07:59 Last Admin: 05/10/18 17:26 Dose: Not Given Cephalexin Monohydrate (Keflex) 500 mg PO QID MANN Stop: 07/08/18 08:59 Last Admin: 05/10/18 20:14 Dose: 500 mg Citalopram Hydrobromide (Celexa) 40 mg PO DAILY MANN Stop: 07/08/18 08:59 Last Admin: 05/10/18 09:44 Dose: 40 mg Ferrous Sulfate (Iron) 325 mg PO TID [facility] Stop: 07/08/18 08:59 Last Admin: 05/10/18 20:14 Dose: 325 mg Furosemide (Lasix) 40 mg PO DAILY MANN Stop: 07/08/18 08:59 Last Admin: 05/10/18 09:43 Dose: 40 mg Gabapentin (Neurontin) 100 mg PO TID [facility] Stop: 07/08/18 08:59 Last Admin: 05/10/18 20:14 Dose: 100 mg Insulin Detemir (Levemir Insulin) 10 units SUBQ HS [facility] Stop: 07/08/18 20:59 Last Admin: 05/10/18 20:14 Dose: 10 unit Isosorbide Mononitrate (Imdur) 30 mg PO DAILY [facility] Stop: 07/09/18 08:59 Last Admin: 05/10/18 09:42 Dose: 30 mg Levothyroxine Sodium (Synthroid) 0.125 mg PO DAILY@0730 [facility] Stop: 07/08/18 07:29 Last Admin: 05/10/18 06:46 Dose: 0.125 mg Magnesium Hydroxide (Milk Of Magnesia) 30 ml PO HS PRN PRN Reason: Constipation Magnesium Hydroxide (Milk Of Magnesia) 30 ml PO DAILY [facility] Stop: 07/08/18 08:59 Last Admin: 05/10/18 09:51 Dose: Not Given Multivitamins/Vitamin C (Theragran) 1 tab PO DAILY [facility] Stop: 07/08/18 08:59 Last Admin: 05/10/18 09:37 Dose: 1 tab Pantoprazole Sodium (Protonix) 40 mg PO DAILY@0730 [facility] Stop: 07/08/18 07:29 Last Admin: 05/10/18 06:33 Dose: 40 mg Potassium Chloride (Klor-Con) 10 meq PO DAILY [facility] Stop: 07/08/18 08:59 Last Admin: 05/10/18 09:38 Dose: 10 meq Rivaroxaban (Xarelto) 10 mg PO DAILY [facility] Stop: 07/09/18 08:59 Last Admin: 05/10/18 09:38 Dose: 10 mg Simethicone (Mylicon) 80 mg PO TID [facility] Stop: 07/08/18 08:59 Last Admin: 05/10/18 20:14 Dose: 80 mg Trazodone HCl (Desyrel) 50 mg PO HS [facility]; Protocol Stop: 07/08/18 20:59 Last Admin: 05/10/18 20:14 Dose: 50 mg Zolpidem Tartrate (Ambien) 5 mg PO HS PRN PRN Reason: Insomnia Stop: 07/08/18 00:28 General: Alert, Oriented x3, No acute distress HEENT: Atraumatic, PERRLA Neck: Supple Cardiovascular: Regular rate, Normal S1, Normal S2 Lungs: Clear to auscultation Abdomen: Bowel sounds, Soft Extremities: no Clubbing, no Cyanosis, no Edema Neurological: Normal gait Assessment/Plan - Assessment Assessment: psychosis diabetes mellitus UTI Hypothyroidism depression htn hyperlipidemia elevated LFTs - Plan Plan: admit to [facility] order Keflex PO Levothyroxine PO
[2018-05-11] MEDS: Levothyroxine 0.125 Mg Tab PO SCH (06:31)
[2018-05-11] MEDS: Pantoprazole 40 mg EC Tab PO SCH (06:31)
[2018-05-11] MEDS: Magnesium Hydroxide (MOM) 30 mL UDC PO SCH (08:05)
[2018-05-11] MEDS: Ferrous Sulfate 325 MG TAB PO SCH ×3 (08:32→21:06)
[2018-05-11] MEDS: Potassium Chloride 10 mEq ER Tab PO SCH (08:33)
[2018-05-11] MEDS: Multivitamin Tab PO SCH (08:33)
[2018-05-11] MEDS: Insulin Detemir 100 units/mL 10mL Vial SUBQ SCH (21:09)
--- NOTE | 2018-05-12 06:13 | General Progress Note ---
Subjective - Review of Systems Service Date: 05/12/18 Subjective: Patient is awake, alert, afebrile VS T 98.1 P 60 R 18 BP 102/53 Objective - Results Result Diagrams: 05/08/18 18:40 05/08/18 18:40 Recent Labs: Laboratory Last Values WBC 12.3 Th/cmm (4.8-10.8) H 05/08/18 18:40 RBC 3.69 Mil/cmm (3.80-5.80) L 05/08/18 18:40 Hgb 11.0 gm/dL (12-16) L 05/08/18 18:40 Hct 32.8 % (41.0-60) L 05/08/18 18:40 MCV 89.0 fl (80-99) 05/08/18 18:40 MCH 29.9 pg (27.0-31.0) 05/08/18 18:40 MCHC Differential 33.6 pg (28.0-36.0) 05/08/18 18:40 RDW 15.8 % (11.5-20.0) 05/08/18 18:40 Plt Count 448 Th/cmm (150-400) H 05/08/18 18:40 MPV 6.8 fl 05/08/18 18:40 Neutrophils % 62.3 % (40.0-80.0) 05/08/18 18:40 Lymphocytes % 28.6 % (20.0-50.0) 05/08/18 18:40 Monocytes % 5.5 % (2.0-10.0) 05/08/18 18:40 Eosinophils % 2.8 % (0.0-5.0) 05/08/18 18:40 Basophils % 0.8 % (0.0-2.0) 05/08/18 18:40 Sodium 138 mEq/L (136-145) 05/08/18 18:40 Potassium 4.1 mEq/L (3.5-5.1) 05/08/18 18:40 Chloride 106 mEq/L (98-107) 05/08/18 18:40 Carbon Dioxide 22.1 mEq/L (21.0-31.0) 05/08/18 18:40 Anion Gap 14.0 (7.0-16.0) 05/08/18 18:40 BUN 57 mg/dL (7-25) H 05/08/18 18:40 Creatinine 2.4 mg/dL (0.7-1.3) H 05/08/18 18:40 Est GFR ( Amer) TNP 05/08/18 18:40 Est GFR (Non-Af Amer) TNP 05/08/18 18:40 BUN/Creatinine Ratio 23.8 05/08/18 18:40 Glucose 147 mg/dL (70-105) H 05/08/18 18:40 POC Glucose 175 MG/DL (70 - 105) H 05/11/18 21:05 Calcium 8.9 mg/dL (8.6-10.3) 05/08/18 18:40 Total Bilirubin 0.3 mg/dL (0.3-1.0) 05/08/18 18:40 AST 74 U/L (13-39) H 05/08/18 18:40 ALT 157 U/L (7-52) H 05/08/18 18:40 Alkaline Phosphatase 85 U/L (34-104) 05/08/18 18:40 Ammonia 41 umol/L (16-53) 05/09/18 07:50 Troponin I 0.01 ng/mL (0.01-0.05) 05/08/18 18:30 Total Protein 7.4 gm/dL (6.0-8.3) 05/08/18 18:40 Albumin 3.7 gm/dL (4.2-5.5) L 05/08/18 18:40 Globulin 3.7 gm/dL 05/08/18 18:40 Albumin/Globulin Ratio 1.0 (1.0-1.8) 05/08/18 18:40 Triglycerides 102 mg/dL (<150) 05/08/18 18:40 Cholesterol 83 mg/dL (<200) 05/08/18 18:40 LDL Cholesterol Direct 54 mg/dL (75-193) L 05/08/18 18:40 HDL Cholesterol 26 mg/dL (23-92) 05/08/18 18:40 TSH 10.76 uIU/ml (0.34-5.60) H 05/08/18 18:40 Urine Source CLEAN C 05/08/18 22:00 Urine Color YELLOW 05/08/18 22:00 Urine Clarity HAZY (CLEAR) 05/08/18 22:00 Urine pH 5.5 (4.6 - 8.0) 05/08/18 22:00 Ur Specific [place] 1.020 (1.005-1.030) 05/08/18 22:00 Urine Protein NEGATIVE mg/dL (NEGATIVE) 05/08/18 22:00 Urine Glucose (UA) NEGATIVE mg/dL (NEGATIVE) 05/08/18 22:00 Urine Ketones NEGATIVE mg/dL (NEGATIVE) 05/08/18 22:00 Urine Blood TRACE (NEGATIVE) 05/08/18 22:00 Urine Nitrate NEGATIVE (NEGATIVE) 05/08/18 22:00 Urine Bilirubin NEGATIVE (NEGATIVE) 05/08/18 22:00 Urine Urobilinogen 0.2 E.U./dL (0.2 - 1.0) 05/08/18 22:00 Ur Leukocyte Esterase MODERATE (NEGATIVE) H 05/08/18 22:00 Urine RBC 0-2 /hpf (0-5) H 05/08/18 22:00 Urine WBC 10-25 /hpf (0-5) H 05/08/18 22:00 Ur Epithelial Cells RARE /lpf (FEW) 05/08/18 22:00 Urine Bacteria MODERATE /hpf (NONE SEEN) H 05/08/18 22:00 Salicylates < 25.0 mg/L (30.0-100.0) L 05/08/18 18:40 Urine Opiates Screen POSITIVE (NEGATIVE) H 05/08/18 22:00 Urine Methadone Screen NEGATIVE (NEGATIVE) 05/08/18 22:00 Acetaminophen < 10.0 ug/mL (10.0-30.0) L 05/08/18 18:40 Ur Barbiturates Screen NEGATIVE (NEGATIVE) 05/08/18 22:00 Ur Tricyclics Screen NEGATIVE (NEGATIVE) 05/08/18 22:00 Ur Phencyclidine Scrn NEGATIVE (NEGATIVE) 05/08/18 22:00 Amphetamines Screen NEGATIVE (NEGATIVE) 05/08/18 22:00 U Methamphetamines Scrn NEGATIVE (NEGATIVE) 05/08/18 22:00 U Benzodiazepines Scrn NEGATIVE (NEGATIVE) 05/08/18 22:00 U Cocaine Metab Screen NEGATIVE (NEGATIVE) 05/08/18 22:00 U Cannabinoids Screen NEGATIVE (NEGATIVE) 05/08/18 22:00 Ethyl Alcohol < 10 mg/dL (0-10) 05/08/18 18:40 RPR NONREACTIVE (NONREACTIVE) 05/08/18 18:40 Hepatitis A IgM Ab Negative (Negative) 05/09/18 07:50 Hep Bs Antigen Negative (Negative) 05/09/18 07:50 Hep B Core IgM Ab Negative (Negative) 05/09/18 07:50 Hepatitis C Antibody <0.1 s/co ratio (0.0-0.9) 05/09/18 07:50 - Physical Exam Vitals and I&O: Vital Signs Temp 98.1 F 05/11/18 20:59 Pulse 60 05/11/18 20:59 Resp 18 05/11/18 20:59 BP 102/53 05/11/18 20:59 Pulse Ox 96 05/11/18 20:59 Intake & Output 05/11/18 05/11/18 05/12/18 06:59 18:59 06:59 Intake Total 240 960 240 Output Total 1 Balance 239 960 240 Intake: Oral 240 960 240 Output: Urine/Stool Mix 1 Other: # Voids 1 3 2 # Bowel Movements 1 1 Active Medications: Current Medications Acetaminophen (Tylenol) 650 mg PO Q4HR PRN PRN Reason: Mild Pain / Temp above 100 Stop: 07/08/18 00:28 Acetaminophen (Tylenol) 650 mg PO Q6HR PRN PRN Reason: Pain (Mild) Stop: 07/08/18 06:17 Acetaminophen/Hydrocodone Bitart ([place] 10 Mg/325 Mg) 1 tab PO Q4HR PRN PRN Reason: Pain (Moderate) Stop: 07/08/18 00:29 Al Hydrox/Mg Hydrox/Simethicone (Maalox) 30 ml PO Q4HR PRN PRN Reason: GI DISTRESS Stop: 07/08/18 00:28 Amiodarone HCl (Cordarone) 200 mg PO DAILY [facility] Stop: 07/09/18 08:59 Last Admin: 05/11/18 08:30 Dose: 200 mg Ascorbic Acid (Vitamin C) 500 mg PO TID [facility] Stop: 07/08/18 08:59 Last Admin: 05/11/18 21:06 Dose: 500 mg Aspirin (Ecotrin) 81 mg PO DAILY [facility] Stop: 07/08/18 08:59 Last Admin: 05/11/18 08:34 Dose: 81 mg Atorvastatin Calcium (Lipitor) 40 mg PO DAILY [facility] Stop: 07/08/18 08:59 Last Admin: 05/11/18 08:28 Dose: 40 mg Bisacodyl (Dulcolax 10 Mg Supp) 10 mg RC DAILY PRN PRN Reason: Constipation Stop: 07/08/18 00:29 Carvedilol (Coreg) 6.25 mg PO BIDBRS MANN Stop: 07/08/18 07:59 Last Admin: 05/11/18 17:40 Dose: 6.25 mg Cephalexin Monohydrate (Keflex) 500 mg PO QID [facility]ANN Stop: 07/08/18 08:59 Last Admin: 05/11/18 21:06 Dose: 500 mg Citalopram Hydrobromide (Celexa) 40 mg PO DAILY [facility] Stop: 07/08/18 08:59 Last Admin: 05/11/18 08:28 Dose: 40 mg Ferrous Sulfate (Iron) 325 mg PO TID [facility] Stop: 07/08/18 08:59 Last Admin: 05/11/18 21:06 Dose: 325 mg Furosemide (Lasix) 40 mg PO DAILY [facility] Stop: 07/08/18 08:59 Last Admin: 05/11/18 08:33 Dose: 40 mg Gabapentin (Neurontin) 100 mg PO TID [facility] Stop: 07/08/18 08:59 Last Admin: 05/11/18 21:06 Dose: 100 mg Insulin Detemir (Levemir Insulin) 10 units SUBQ HS [facility] Stop: 07/08/18 20:59 Last Admin: 05/11/18 21:09 Dose: 10 unit Isosorbide Mononitrate (Imdur) 30 mg PO DAILY [facility] Stop: 07/09/18 08:59 Last Admin: 05/11/18 08:31 Dose: 30 mg Levothyroxine Sodium (Synthroid) 0.125 mg PO DAILY@0730 [facility] Stop: 07/08/18 07:29 Last Admin: 05/11/18 06:31 Dose: 0.125 mg Magnesium Hydroxide (Milk Of Magnesia) 30 ml PO HS PRN PRN Reason: Constipation Magnesium Hydroxide (Milk Of Magnesia) 30 ml PO DAILY [facility] Stop: 07/08/18 08:59 Last Admin: 05/11/18 08:05 Dose: Not Given Multivitamins/Vitamin C (Theragran) 1 tab PO DAILY [facility] Stop: 07/08/18 08:59 Last Admin: 05/11/18 08:33 Dose: 1 tab Pantoprazole Sodium (Protonix) 40 mg PO DAILY@0730 [facility] Stop: 07/08/18 07:29 Last Admin: 05/11/18 06:31 Dose: 40 mg Potassium Chloride (Klor-Con) 10 meq PO DAILY [facility] Stop: 07/08/18 08:59 Last Admin: 05/11/18 08:33 Dose: 10 meq Rivaroxaban (Xarelto) 10 mg PO DAILY [facility] Stop: 07/09/18 08:59 Last Admin: 05/11/18 08:34 Dose: 10 mg Simethicone (Mylicon) 80 mg PO TID [facility] Stop: 07/08/18 08:59 Last Admin: 05/11/18 21:06 Dose: 80 mg Trazodone HCl (Desyrel) 50 mg PO HS [facility]; Protocol Stop: 07/08/18 20:59 Last Admin: 05/11/18 21:06 Dose: 50 mg Zolpidem Tartrate (Ambien) 5 mg PO HS PRN PRN Reason: Insomnia Stop: 07/08/18 00:28 General: Alert, Oriented x3, No acute distress HEENT: Atraumatic, PERRLA Neck: Supple Cardiovascular: Regular rate, Normal S1, Normal S2 Lungs: Clear to auscultation Abdomen: Bowel sounds, Soft Extremities: no Clubbing, no Cyanosis, no Edema Neurological: Normal gait Assessment/Plan - Assessment Assessment: psychosis diabetes mellitus UTI Hypothyroidism depression htn hyperlipidemia elevated LFTs - Plan Plan: admit to [facility] order Keflex PO Levothyroxine PO Nutritional Asmnt/Malnutr-PDOC - Dietary Evaluation Malnutrition Findings (Please click <Entered> for more info): Nutritional Asmnt/Malnutrition Start: 05/11/18 16: 34 Text: Status: Complete Freq: Protocol: Document 05/11/18 16:36 [email or web address] (Rec: 05/11/18 16:44 [email or web address] [email or web address]) Nutritional Asmnt/Malnutrition Patient General Information Nutritional Screening Moderate Risk Diagnosis depression Pertinent Medical Hx/Surgical Hx HTn, dyslipidemia, depression Subjective Information PT seen lying in bed at time of visit, awake, stated he has good appetite, no question about food so fat. Per EMR, PO intake 75%. Current Diet Order/ Nutrition Support LCS [facility]EL[facility] Pertinent Medications vit C, lipitor, iron, lasix, levemir, synthroid, theragran, protonix, kcl Pertinent Labs 05/09 POC 150, 2/7 POC 192 2/5 BUN 57, Cr 2.4, Glucose 147, alb 3.7 Nutritional Hx/Data Height 1.83 m Height (Calculated Centimeters) 182.9 Current Weight (lbs) 74.843 kg Weight (Calculated Kilograms) 74.8 Weight (Calculated Grams) 30408.7 [place] Body Weight 178 Body Mass Index (BMI) 22.4 Weight Status Approriate GI Symptoms GI Symptoms None Last BM 2/3 Difficult in: None Skin Integrity/Comment: intact Current %PO Good (75-100%) Estimated Nutritional Goals BEE in Kcals: Using Current wt Calories/Kcals/Kg 25-30 Kcals Calculated 0196-3371 Protein: Using Current wt Protein g/k.7 monitor renal labs Protein Calculated 53 Fluid: ml 1875-2250ml (1ml/kcal) Nutritional Problem 1. Problem Problem altered nutrition related labs Etiology possible renal dysfunction Signs/Symptoms: BUN 57, Cr 2.4 No current Nutrition Prob Problem N/A Malnutrition Alert Is there a minimum of two criteria No selected? Query Text:Check all the applicable criteria. A minimum of two criteria are recommended for diagnosis of either severe or non-severe malnutrition. Malnutrition Related to Morbid Obesity Malnutrition related to morbid obesity No Intervention/Recommendation Comments 1. Continue with CAMEL[facility] diet as ordered. Verified with RN regarding LCS diet means no concerntrated sweets. 2. recommend limit protein intake d/t elevated BUN/Cr. Serve 1/2 portion meat at lunch and dinner. 3. Monitor PO intake, wt, labs and skin integrity 4. F/U as low risk in 7 days Expected Outcomes/Goals Expected Outcomes/Goals 1. PO intake to meet at least 75% of nutritional needs. 2. Wt stability, skin to remain intact, labs to approach WNL.
[2018-05-12] MEDS: Pantoprazole 40 mg EC Tab PO SCH (06:53)
[2018-05-12] MEDS: Levothyroxine 0.125 Mg Tab PO SCH (06:53)
--- NOTE | 2018-05-12 09:46 | Progress Notes ---
DATE: 05/11/2018 SUBJECTIVE: Staff was spoken to. The patient is interviewed. Mood is noted to be depressed. Affect is constricted. The patient is isolative and withdrawn. Insight and judgment are noted to be still impaired. Impulse control seems to be poor. Coping skills are also noted to be very poor. ASSESSMENT: The patient is still depressed. PLAN: To continue the patient with the supportive therapy and followup. [facility]# [id number]
[2018-05-12] MEDS: Multivitamin Tab PO SCH (09:48)
[2018-05-12] MEDS: Ferrous Sulfate 325 MG TAB PO SCH ×3 (09:53→20:41)
[2018-05-12] MEDS: Potassium Chloride 10 mEq ER Tab PO SCH (09:53)
[2018-05-12] MEDS: Magnesium Hydroxide (MOM) 30 mL UDC PO SCH (10:00)
--- NOTE | 2018-05-12 14:31 | Progress Notes ---
DATE: 05/12/2018 SUBJECTIVE: Staff was spoken to. The patient is interviewed. Mood is noted to be depressed. Affect is constricted. The patient is isolative and withdrawn. Insight and judgment at this time are noted to be still impaired. Impulse control is limited. The patient is getting easily frustrated. The patient has been focusing on his medical problems. ASSESSMENT: The patient is still depressed. PLAN: To continue the patient with the supportive therapy and follow. JOB# [id number]
[2018-05-12] MEDS: Insulin Detemir 100 units/mL 10mL Vial SUBQ SCH (20:41)
--- NOTE | 2018-05-13 05:54 | General Progress Note ---
Subjective - Review of Systems Service Date: 05/13/18 Subjective: Patient is awake, alert, afebrile VS T 97.8 P 62 R 18 BP 97/54 Objective - Results Result Diagrams: 05/08/18 18:40 05/08/18 18:40 Recent Labs: Laboratory Last Values WBC 12.3 Th/cmm (4.8-10.8) H 05/08/18 18:40 RBC 3.69 Mil/cmm (3.80-5.80) L 05/08/18 18:40 Hgb 11.0 gm/dL (12-16) L 05/08/18 18:40 Hct 32.8 % (41.0-60) L 05/08/18 18:40 MCV 89.0 fl (80-99) 05/08/18 18:40 MCH 29.9 pg (27.0-31.0) 05/08/18 18:40 MCHC Differential 33.6 pg (28.0-36.0) 05/08/18 18:40 RDW 15.8 % (11.5-20.0) 05/08/18 18:40 Plt Count 448 Th/cmm (150-400) H 05/08/18 18:40 MPV 6.8 fl 05/08/18 18:40 Neutrophils % 62.3 % (40.0-80.0) 05/08/18 18:40 Lymphocytes % 28.6 % (20.0-50.0) 05/08/18 18:40 Monocytes % 5.5 % (2.0-10.0) 05/08/18 18:40 Eosinophils % 2.8 % (0.0-5.0) 05/08/18 18:40 Basophils % 0.8 % (0.0-2.0) 05/08/18 18:40 Sodium 138 mEq/L (136-145) 05/08/18 18:40 Potassium 4.1 mEq/L (3.5-5.1) 05/08/18 18:40 Chloride 106 mEq/L (98-107) 05/08/18 18:40 Carbon Dioxide 22.1 mEq/L (21.0-31.0) 05/08/18 18:40 Anion Gap 14.0 (7.0-16.0) 05/08/18 18:40 BUN 57 mg/dL (7-25) H 05/08/18 18:40 Creatinine 2.4 mg/dL (0.7-1.3) H 05/08/18 18:40 Est GFR ( Amer) TNP 05/08/18 18:40 Est GFR (Non-Af Amer) TNP 05/08/18 18:40 BUN/Creatinine Ratio 23.8 05/08/18 18:40 Glucose 147 mg/dL (70-105) H 05/08/18 18:40 POC Glucose 188 MG/DL (70 - 105) H 05/12/18 19:47 Calcium 8.9 mg/dL (8.6-10.3) 05/08/18 18:40 Total Bilirubin 0.3 mg/dL (0.3-1.0) 05/08/18 18:40 AST 74 U/L (13-39) H 05/08/18 18:40 ALT 157 U/L (7-52) H 05/08/18 18:40 Alkaline Phosphatase 85 U/L (34-104) 05/08/18 18:40 Ammonia 41 umol/L (16-53) 05/09/18 07:50 Troponin I 0.01 ng/mL (0.01-0.05) 05/08/18 18:30 Total Protein 7.4 gm/dL (6.0-8.3) 05/08/18 18:40 Albumin 3.7 gm/dL (4.2-5.5) L 05/08/18 18:40 Globulin 3.7 gm/dL 05/08/18 18:40 Albumin/Globulin Ratio 1.0 (1.0-1.8) 05/08/18 18:40 Triglycerides 102 mg/dL (<150) 05/08/18 18:40 Cholesterol 83 mg/dL (<200) 05/08/18 18:40 LDL Cholesterol Direct 54 mg/dL (75-193) L 05/08/18 18:40 HDL Cholesterol 26 mg/dL (23-92) 05/08/18 18:40 TSH 10.76 uIU/ml (0.34-5.60) H 05/08/18 18:40 Urine Source CLEAN C 05/08/18 22:00 Urine Color YELLOW 05/08/18 22:00 Urine Clarity HAZY (CLEAR) 05/08/18 22:00 Urine pH 5.5 (4.6 - 8.0) 05/08/18 22:00 Ur Specific Wolf 1.020 (1.005-1.030) 05/08/18 22:00 Urine Protein NEGATIVE mg/dL (NEGATIVE) 05/08/18 22:00 Urine Glucose (UA) NEGATIVE mg/dL (NEGATIVE) 05/08/18 22:00 Urine Ketones NEGATIVE mg/dL (NEGATIVE) 05/08/18 22:00 Urine Blood TRACE (NEGATIVE) 05/08/18 22:00 Urine Nitrate NEGATIVE (NEGATIVE) 05/08/18 22:00 Urine Bilirubin NEGATIVE (NEGATIVE) 05/08/18 22:00 Urine Urobilinogen 0.2 E.U./dL (0.2 - 1.0) 05/08/18 22:00 Ur Leukocyte Esterase MODERATE (NEGATIVE) H 05/08/18 22:00 Urine RBC 0-2 /hpf (0-5) H 05/08/18 22:00 Urine WBC 10-25 /hpf (0-5) H 05/08/18 22:00 Ur Epithelial Cells RARE /lpf (FEW) 05/08/18 22:00 Urine Bacteria MODERATE /hpf (NONE SEEN) H 05/08/18 22:00 Salicylates < 25.0 mg/L (30.0-100.0) L 05/08/18 18:40 Urine Opiates Screen POSITIVE (NEGATIVE) H 05/08/18 22:00 Urine Methadone Screen NEGATIVE (NEGATIVE) 05/08/18 22:00 Acetaminophen < 10.0 ug/mL (10.0-30.0) L 05/08/18 18:40 Ur Barbiturates Screen NEGATIVE (NEGATIVE) 05/08/18 22:00 Ur Tricyclics Screen NEGATIVE (NEGATIVE) 05/08/18 22:00 Ur Phencyclidine Scrn NEGATIVE (NEGATIVE) 05/08/18 22:00 Amphetamines Screen NEGATIVE (NEGATIVE) 05/08/18 22:00 U Methamphetamines Scrn NEGATIVE (NEGATIVE) 05/08/18 22:00 U Benzodiazepines Scrn NEGATIVE (NEGATIVE) 05/08/18 22:00 U Cocaine Metab Screen NEGATIVE (NEGATIVE) 05/08/18 22:00 U Cannabinoids Screen NEGATIVE (NEGATIVE) 05/08/18 22:00 Ethyl Alcohol < 10 mg/dL (0-10) 05/08/18 18:40 RPR NONREACTIVE (NONREACTIVE) 05/08/18 18:40 Hepatitis A IgM Ab Negative (Negative) 05/09/18 07:50 Hep Bs Antigen Negative (Negative) 05/09/18 07:50 Hep B Core IgM Ab Negative (Negative) 05/09/18 07:50 Hepatitis C Antibody <0.1 s/co ratio (0.0-0.9) 05/09/18 07:50 - Physical Exam Vitals and I&O: Vital Signs Temp 97.8 F 05/12/18 20:49 Pulse 62 05/12/18 20:49 Resp 18 05/12/18 20:49 BP 97/54 05/12/18 20:49 Pulse Ox 96 05/12/18 20:49 Intake & Output 05/12/18 05/12/18 05/13/18 06:59 18:59 06:59 Intake Total 240 1350 240 Output Total 1 Balance 240 1350 239 Intake: Oral 240 1350 240 Output: Stool 1 Other: # Voids 2 3 1 # Bowel Movements 0 Active Medications: Current Medications Acetaminophen (Tylenol) 650 mg PO Q4HR PRN PRN Reason: Mild Pain / Temp above 100 Stop: 07/08/18 00:28 Acetaminophen (Tylenol) 650 mg PO Q6HR PRN PRN Reason: Pain (Mild) Stop: 07/08/18 06:17 Acetaminophen/Hydrocodone Bitart ([place] 10 Mg/325 Mg) 1 tab PO Q4HR PRN PRN Reason: Pain (Moderate) Stop: 07/08/18 00:29 Al Hydrox/Mg Hydrox/Simethicone (Maalox) 30 ml PO Q4HR PRN PRN Reason: GI DISTRESS Stop: 07/08/18 00:28 Amiodarone HCl (Cordarone) 200 mg PO DAILY [facility] Stop: 07/09/18 08:59 Last Admin: 05/12/18 09:54 Dose: Not Given Ascorbic Acid (Vitamin C) 500 mg PO TID [facility] Stop: 07/08/18 08:59 Last Admin: 05/12/18 20:41 Dose: 500 mg Aspirin (Ecotrin) 81 mg PO DAILY [facility] Stop: 07/08/18 08:59 Last Admin: 02/09/19 09:53 Dose: 81 mg Atorvastatin Calcium (Lipitor) 40 mg PO DAILY [facility] Stop: 07/08/18 08:59 Last Admin: 05/12/18 09:58 Dose: 40 mg Bisacodyl (Dulcolax 10 Mg Supp) 10 mg RC DAILY PRN PRN Reason: Constipation Stop: 07/08/18 00:29 Carvedilol (Coreg) 6.25 mg PO BIDBRS MANN Stop: 07/08/18 07:59 Last Admin: 05/12/18 17:06 Dose: Not Given Cephalexin Monohydrate (Keflex) 500 mg PO QID [facility] Stop: 07/08/18 08:59 Last Admin: 05/12/18 20:41 Dose: 500 mg Citalopram Hydrobromide (Celexa) 40 mg PO DAILY [facility] Stop: 07/08/18 08:59 Last Admin: 05/12/18 09:54 Dose: 40 mg Ferrous Sulfate (Iron) 325 mg PO TID [facility] Stop: 07/08/18 08:59 Last Admin: 05/12/18 20:41 Dose: 325 mg Furosemide (Lasix) 40 mg PO DAILY [facility] Stop: 07/08/18 08:59 Last Admin: 05/12/18 09:49 Dose: Not Given Gabapentin (Neurontin) 100 mg PO TID [facility] Stop: 07/08/18 08:59 Last Admin: 05/12/18 20:41 Dose: 100 mg Insulin Detemir (Levemir Insulin) 10 units SUBQ HS [facility] Stop: 07/08/18 20:59 Last Admin: 05/12/18 20:41 Dose: 10 unit Isosorbide Mononitrate (Imdur) 30 mg PO DAILY [facility] Stop: 07/09/18 08:59 Last Admin: 05/12/18 09:53 Dose: 30 mg Levothyroxine Sodium (Synthroid) 0.125 mg PO DAILY@0730 [facility] Stop: 07/08/18 07:29 Last Admin: 05/12/18 06:53 Dose: 0.125 mg Magnesium Hydroxide (Milk Of Magnesia) 30 ml PO HS PRN PRN Reason: Constipation Magnesium Hydroxide (Milk Of Magnesia) 30 ml PO DAILY [facility] Stop: 07/08/18 08:59 Last Admin: 05/12/18 10:00 Dose: Not Given Multivitamins/Vitamin C (Theragran) 1 tab PO DAILY [facility] Stop: 07/08/18 08:59 Last Admin: 05/12/18 09:48 Dose: 1 tab Pantoprazole Sodium (Protonix) 40 mg PO DAILY@0730 [facility] Stop: 07/08/18 07:29 Last Admin: 05/12/18 06:53 Dose: 40 mg Potassium Chloride (Klor-Con) 10 meq PO DAILY [facility] Stop: 07/08/18 08:59 Last Admin: 05/12/18 09:53 Dose: Not Given Rivaroxaban (Xarelto) 10 mg PO DAILY [facility] Stop: 07/09/18 08:59 Last Admin: 05/12/18 09:54 Dose: 10 mg Simethicone (Mylicon) 80 mg PO TID [facility] Stop: 07/08/18 08:59 Last Admin: 05/12/18 20:41 Dose: 80 mg Trazodone HCl (Desyrel) 50 mg PO HS [facility]; Protocol Stop: 07/08/18 20:59 Last Admin: 05/12/18 20:41 Dose: 50 mg Zolpidem Tartrate (Ambien) 5 mg PO HS PRN PRN Reason: Insomnia Stop: 07/08/18 00:28 General: Alert, Oriented x3, No acute distress HEENT: Atraumatic, PERRLA Neck: Supple Cardiovascular: Regular rate, Normal S1, Normal S2 Lungs: Clear to auscultation Abdomen: Bowel sounds, Soft Extremities: no Clubbing, no Cyanosis, no Edema Neurological: Normal gait Assessment/Plan - Assessment Assessment: psychosis diabetes mellitus UTI Hypothyroidism depression htn hyperlipidemia elevated LFTs - Plan Plan: admit to [facility] order Keflex PO Levothyroxine PO Nutritional Asmnt/Malnutr-PDOC - Dietary Evaluation Malnutrition Findings (Please click <Entered> for more info): Nutritional Asmnt/Malnutrition Start: 05/11/18 16: 34 Text: Status: Complete Freq: Protocol: Document 05/11/18 16:36 LCHENG (Rec: 05/11/18 16:44 [email or web address]) Nutritional Asmnt/Malnutrition Patient General Information Nutritional Screening Moderate Risk Diagnosis depression Pertinent Medical Hx/Surgical Hx HTn, dyslipidemia, depression Subjective Information PT seen lying in bed at time of visit, awake, stated he has good appetite, no question about food so fat. Per EMR, PO intake 75%. Current Diet Order/ Nutrition Support LCS CAMELIA Pertinent Medications vit C, lipitor, iron, lasix, levemir, synthroid, theragran, protonix, kcl Pertinent Labs 2/ POC 150, 2/7 POC 192 2/5 BUN 57, Cr 2.4, Glucose 147, alb 3.7 Nutritional Hx/Data Height 1.83 m Height (Calculated Centimeters) 182.9 Current Weight (lbs) 74.843 kg Weight (Calculated Kilograms) 74.8 Weight (Calculated Grams) 17511.7 Barry Body Weight 178 Body Mass Index (BMI) 22.4 Weight Status Approriate GI Symptoms GI Symptoms None Last BM 2/3 Difficult in: None Skin Integrity/Comment: intact Current %PO Good (75-100%) Estimated Nutritional Goals BEE in Kcals: Using Current wt Calories/Kcals/Kg 25-30 Kcals Calculated 8884-3069 Protein: Using Current wt Protein g/k.7 monitor renal labs Protein Calculated 53 Fluid: ml 1875-2250ml (1ml/kcal) Nutritional Problem 1. Problem Problem altered nutrition related labs Etiology possible renal dysfunction Signs/Symptoms: BUN 57, Cr 2.4 No current Nutrition Prob Problem N/A Malnutrition Alert Is there a minimum of two criteria No selected? Query Text:Check all the applicable criteria. A minimum of two criteria are recommended for diagnosis of either severe or non-severe malnutrition. Malnutrition Related to Morbid Obesity Malnutrition related to morbid obesity No Intervention/Recommendation Comments 1. Continue with CAMELIA LCS diet as ordered. Verified with RN regarding LCS diet means no concerntrated sweets. 2. recommend limit protein intake d/t elevated BUN/Cr. Serve 1/2 portion meat at lunch and dinner. 3. Monitor PO intake, wt, labs and skin integrity 4. F/U as low risk in 7 days Expected Outcomes/Goals Expected Outcomes/Goals 1. PO intake to meet at least 75% of nutritional needs. 2. Wt stability, skin to remain intact, labs to approach WNL.
[2018-05-13] MEDS: Pantoprazole 40 mg EC Tab PO SCH (06:37)
[2018-05-13] MEDS: Levothyroxine 0.125 Mg Tab PO SCH (06:37)
[2018-05-13] MEDS: Ferrous Sulfate 325 MG TAB PO SCH ×3 (09:55→20:33)
[2018-05-13] MEDS: Potassium Chloride 10 mEq ER Tab PO SCH (09:55)
[2018-05-13] MEDS: Magnesium Hydroxide (MOM) 30 mL UDC PO SCH (09:55)
[2018-05-13] MEDS: Multivitamin Tab PO SCH (09:55)
[2018-05-13] MEDS ORDERED: Gentamicin 80 mg/2mL Vial IM SCH (13:45)
[2018-05-13] MEDS: Gentamicin 80 mg/2mL Vial IM SCH (14:07)
[2018-05-13] MEDS: Insulin Detemir 100 units/mL 10mL Vial SUBQ SCH (20:38)
--- NOTE | 2018-05-13 23:22 | Progress Notes ---
DATE: 05/13/2018 SUBJECTIVE: SUBJECTIVE: Staff was spoken to. The patient is interviewed. Mood is noted to be depressed. Affect is constricted. The patient is isolative and withdrawn. The patient is stating that his nephew came by yesterday and that was a surprise visit and he felt happy about it. No side effects to the medications are noted at this time. ASSESSMENT: The patient is still depressed. PLAN: To continue the patient with the supportive therapy and followup. JOB# [id number]
--- NOTE | 2018-05-14 03:59 | Consultation ---
DATE OF CONSULTATION: 05/12/2018 INFECTIOUS DISEASE CONSULTATION REFERRING PHYSICIAN: Dr. Camilo. REASON FOR CONSULTATION: UTI pseudomonas. HISTORY OF PRESENT ILLNESS: The patient is 82-year-old male with a past medical history of hypertension, hyperlipidemia, depression, admitted to the [facility] for a 3-day history of depression. On initial evaluation, the patient was afebrile and WBC of 12,300. Basic workup was performed and urinalysis suggested UTI and urine culture grew Pseudomonas aeruginosa. ID consult was called for the antibiotic management. PAST MEDICAL HISTORY: Includes hypertension, hyperlipidemia and depression. ALLERGIES: NKDA. MEDICATIONS: As per medication reconciliation sheet. Antibiotic stewart, the patient is on Keflex. SOCIAL HISTORY: The patient lives in a nursing facility. No history of smoking, alcohol or drug use. FAMILY HISTORY: Not available. REVIEW OF SYSTEMS: GENERAL: The patient has no fever, no chills. HEENT: No diplopia, no photophobia, no sore throat. RESPIRATORY: No cough, no shortness of breath. CARDIOVASCULAR: No chest. No palpitations. GASTROINTESTINAL: No nausea, no vomiting, no diarrhea, no constipation. GENITOURINARY: No dysuria. NEUROLOGIC: No headache, no dizziness, no focal weakness. PHYSICAL EXAMINATION: CURRENT VITAL SIGNS: Shows temperature is 97.9 degrees Fahrenheit, pulse 61, respiration is 16, and blood pressure is 147/59. GENERAL: The patient is comfortable, lying in the bed, not in acute distress. HEENT: Head is normocephalic, atraumatic. Oral cavity moist, pink tongue. NECK: Supple, no JVD, no carotid bruit. Trachea in the midline. CHEST: Bilateral breath sounds. No crackles or wheezing. HEART: S1, S2 within normal limits. Regular rhythm. No murmur, no gallop. ABDOMEN: Soft, nontender, nondistended. Bowel sounds present. EXTREMITIES: No cyanosis, no clubbing, edema. BACK: No CVA tenderness. No spinal tenderness. CENTRAL NERVOUS SYSTEM: Alert, awake, oriented x 3. LABORATORY DATA: Current lab shows WBC count 12,300, hemoglobin 11, hematocrit 32.8, platelets are 448,000, neutrophils 62.3%. Sodium is 138, potassium is 4.1, chloride 106, bicarbonate is 22, BUN is 57, creatinine 2.4 and glucose is 147. AST 74, ALT is 157, alkaline phosphatase is 85. pH of 10.76. Urinalysis, moderate esterase, wbc's 10-25 and bacteria moderate. Hepatitis panel is negative. RPR is nonreactive. Urine culture grew Pseudomonas aeruginosa. IMPRESSION: 1. Pseudomonas urinary tract infection. 2. Chronic renal failure. 3. Hypothyroidism. 4. Psychosis. 5. Depression. 6. Hypertension. 7. Hyperlipidemia. 8. Elevated LFTs. RECOMMENDATIONS: Continue gentamicin low dose IM once a day. Monitor his BMP every day. Monitor creatinine. We will get a renal ultrasound. Thank you, Dr. Camiol for involving me in taking care of this patient. JOB# [id number] MTDVandana
[2018-05-14] MEDS: Pantoprazole 40 mg EC Tab PO SCH (06:34)
[2018-05-14] MEDS: Levothyroxine 0.125 Mg Tab PO SCH (06:34)
[2018-05-14 07:40] LABS: ANION GAP 12.5 (7.0-16.0); BUN - UREA NITROGEN 59 mg/dL (7-25); CALCIUM SERUM 8.9 mg/dL (8.6-10.3); CHLORIDE 107 mEq/L (98-107); CREATININE - SERUM 2.2 mg/dL (0.7-1.3); GLUCOSE 161 mg/dL (70-105); POTASSIUM SERUM 4.5 mEq/L (3.5-5.1); SODIUM SERUM 137 mEq/L (136-145)
--- NOTE | 2018-05-14 08:16 | General Progress Note ---
Subjective - Review of Systems Service Date: 05/14/18 Subjective: Patient is awake, alert, afebrile VS T 97.1 P 60 R 18 BP 104/53 Objective - Results Result Diagrams: 05/08/18 18:40 05/14/18 06:55 Recent Labs: Laboratory Last Values WBC 12.3 Th/cmm (4.8-10.8) H 05/08/18 18:40 RBC 3.69 Mil/cmm (3.80-5.80) L 05/08/18 18:40 Hgb 11.0 gm/dL (12-16) L 05/08/18 18:40 Hct 32.8 % (41.0-60) L 05/08/18 18:40 MCV 89.0 fl (80-99) 05/08/18 18:40 MCH 29.9 pg (27.0-31.0) 05/08/18 18:40 MCHC Differential 33.6 pg (28.0-36.0) 05/08/18 18:40 RDW 15.8 % (11.5-20.0) 05/08/18 18:40 Plt Count 448 Th/cmm (150-400) H 05/08/18 18:40 MPV 6.8 fl 05/08/18 18:40 Neutrophils % 62.3 % (40.0-80.0) 05/08/18 18:40 Lymphocytes % 28.6 % (20.0-50.0) 05/08/18 18:40 Monocytes % 5.5 % (2.0-10.0) 05/08/18 18:40 Eosinophils % 2.8 % (0.0-5.0) 05/08/18 18:40 Basophils % 0.8 % (0.0-2.0) 05/08/18 18:40 Sodium 137 mEq/L (136-145) 05/14/18 06:55 Potassium 4.5 mEq/L (3.5-5.1) 05/14/18 06:55 Chloride 107 mEq/L (98-107) 05/14/18 06:55 Carbon Dioxide 22.0 mEq/L (21.0-31.0) 05/14/18 06:55 Anion Gap 12.5 (7.0-16.0) 05/14/18 06:55 BUN 59 mg/dL (7-25) H 05/14/18 06:55 Creatinine 2.2 mg/dL (0.7-1.3) H 05/14/18 06:55 Est GFR ( Amer) TNP 05/14/18 06:55 Est GFR (Non-Af Amer) TNP 05/14/18 06:55 BUN/Creatinine Ratio 26.8 05/14/18 06:55 Glucose 161 mg/dL (70-105) H 05/14/18 06:55 POC Glucose 188 MG/DL (70 - 105) H 05/12/18 19:47 Calcium 8.9 mg/dL (8.6-10.3) 05/14/18 06:55 Total Bilirubin 0.3 mg/dL (0.3-1.0) 05/08/18 18:40 AST 74 U/L (13-39) H 05/08/18 18:40 ALT 157 U/L (7-52) H 05/08/18 18:40 Alkaline Phosphatase 85 U/L (34-104) 05/08/18 18:40 Ammonia 41 umol/L (16-53) 05/09/18 07:50 Troponin I 0.01 ng/mL (0.01-0.05) 05/08/18 18:30 Total Protein 7.4 gm/dL (6.0-8.3) 05/08/18 18:40 Albumin 3.7 gm/dL (4.2-5.5) L 05/08/18 18:40 Globulin 3.7 gm/dL 05/08/18 18:40 Albumin/Globulin Ratio 1.0 (1.0-1.8) 05/08/18 18:40 Triglycerides 102 mg/dL (<150) 05/08/18 18:40 Cholesterol 83 mg/dL (<200) 05/08/18 18:40 LDL Cholesterol Direct 54 mg/dL (75-193) L 05/08/18 18:40 HDL Cholesterol 26 mg/dL (23-92) 05/08/18 18:40 TSH 10.76 uIU/ml (0.34-5.60) H 05/08/18 18:40 Urine Source CLEAN C 05/08/18 22:00 Urine Color YELLOW 05/08/18 22:00 Urine Clarity HAZY (CLEAR) 05/08/18 22:00 Urine pH 5.5 (4.6 - 8.0) 05/08/18 22:00 Ur Specific [place] 1.020 (1.005-1.030) 05/08/18 22:00 Urine Protein NEGATIVE mg/dL (NEGATIVE) 05/08/18 22:00 Urine Glucose (UA) NEGATIVE mg/dL (NEGATIVE) 05/08/18 22:00 Urine Ketones NEGATIVE mg/dL (NEGATIVE) 05/08/18 22:00 Urine Blood TRACE (NEGATIVE) 05/08/18 22:00 Urine Nitrate NEGATIVE (NEGATIVE) 05/08/18 22:00 Urine Bilirubin NEGATIVE (NEGATIVE) 05/08/18 22:00 Urine Urobilinogen 0.2 E.U./dL (0.2 - 1.0) 05/08/18 22:00 Ur Leukocyte Esterase MODERATE (NEGATIVE) H 05/08/18 22:00 Urine RBC 0-2 /hpf (0-5) H 05/08/18 22:00 Urine WBC 10-25 /hpf (0-5) H 05/08/18 22:00 Ur Epithelial Cells RARE /lpf (FEW) 05/08/18 22:00 Urine Bacteria MODERATE /hpf (NONE SEEN) H 05/08/18 22:00 Salicylates < 25.0 mg/L (30.0-100.0) L 05/08/18 18:40 Urine Opiates Screen POSITIVE (NEGATIVE) H 05/08/18 22:00 Urine Methadone Screen NEGATIVE (NEGATIVE) 05/08/18 22:00 Acetaminophen < 10.0 ug/mL (10.0-30.0) L 05/08/18 18:40 Ur Barbiturates Screen NEGATIVE (NEGATIVE) 05/08/18 22:00 Ur Tricyclics Screen NEGATIVE (NEGATIVE) 05/08/18 22:00 Ur Phencyclidine Scrn NEGATIVE (NEGATIVE) 05/08/18 22:00 Amphetamines Screen NEGATIVE (NEGATIVE) 05/08/18 22:00 U Methamphetamines Scrn NEGATIVE (NEGATIVE) 05/08/18 22:00 U Benzodiazepines Scrn NEGATIVE (NEGATIVE) 05/08/18 22:00 U Cocaine Metab Screen NEGATIVE (NEGATIVE) 05/08/18 22:00 U Cannabinoids Screen NEGATIVE (NEGATIVE) 05/08/18 22:00 Ethyl Alcohol < 10 mg/dL (0-10) 05/08/18 18:40 RPR NONREACTIVE (NONREACTIVE) 05/08/18 18:40 Hepatitis A IgM Ab Negative (Negative) 05/09/18 07:50 Hep Bs Antigen Negative (Negative) 05/09/18 07:50 Hep B Core IgM Ab Negative (Negative) 05/09/18 07:50 Hepatitis C Antibody <0.1 s/co ratio (0.0-0.9) 05/09/18 07:50 - Physical Exam Vitals and I&O: Vital Signs Temp 97.1 F 05/13/18 21:26 Pulse 60 05/13/18 21:26 Resp 18 05/13/18 21:26 BP 104/53 05/13/18 21:26 Pulse Ox 96 05/13/18 21:26 Intake & Output 05/13/18 05/14/18 05/14/18 18:59 06:59 18:59 Intake Total 240 Balance 240 Intake: Oral 240 Other: # Voids 2 Active Medications: Current Medications Acetaminophen (Tylenol) 650 mg PO Q4HR PRN PRN Reason: Mild Pain / Temp above 100 Stop: 07/08/18 00:28 Acetaminophen (Tylenol) 650 mg PO Q6HR PRN PRN Reason: Pain (Mild) Stop: 07/08/18 06:17 Acetaminophen/Hydrocodone Bitart ([place] 10 Mg/325 Mg) 1 tab PO Q4HR PRN PRN Reason: Pain (Moderate) Stop: 07/08/18 00:29 Al Hydrox/Mg Hydrox/Simethicone (Maalox) 30 ml PO Q4HR PRN PRN Reason: GI DISTRESS Stop: 07/08/18 00:28 Amiodarone HCl (Cordarone) 200 mg PO DAILY [facility] Stop: 07/09/18 08:59 Last Admin: 05/13/18 09:55 Dose: 200 mg Ascorbic Acid (Vitamin C) 500 mg PO TID [facility] Stop: 07/08/18 08:59 Last Admin: 05/13/18 20:33 Dose: 500 mg Aspirin (Ecotrin) 81 mg PO DAILY [facility] Stop: 07/08/18 08:59 Last Admin: 05/13/18 09:55 Dose: 81 mg Atorvastatin Calcium (Lipitor) 40 mg PO DAILY [facility] Stop: 07/08/18 08:59 Last Admin: 05/13/18 09:55 Dose: 40 mg Bisacodyl (Dulcolax 10 Mg Supp) 10 mg RC DAILY PRN PRN Reason: Constipation Stop: 07/08/18 00:29 Carvedilol (Coreg) 6.25 mg PO BIDBRS [facility] Stop: 07/08/18 07:59 Last Admin: 05/13/18 17:12 Dose: 6.25 mg Citalopram Hydrobromide (Celexa) 40 mg PO DAILY [facility] Stop: 07/08/18 08:59 Last Admin: 05/13/18 09:55 Dose: 40 mg Ferrous Sulfate (Iron) 325 mg PO TID [facility] Stop: 07/08/18 08:59 Last Admin: 05/13/18 20:33 Dose: 325 mg Furosemide (Lasix) 40 mg PO DAILY [facility] Stop: 07/08/18 08:59 Last Admin: 05/13/18 09:55 Dose: 40 mg Gabapentin (Neurontin) 100 mg PO TID [facility] Stop: 07/08/18 08:59 Last Admin: 05/13/18 20:33 Dose: 100 mg Gentamicin Sulfate (Garamycin) 112 mg IM Q24HR@1400 [facility] Stop: 07/12/18 13:59 Last Admin: 05/13/18 14:07 Dose: 112 mg Insulin Detemir (Levemir Insulin) 10 units SUBQ HS [facility] Stop: 07/08/18 20:59 Last Admin: 05/13/18 20:38 Dose: 10 unit Isosorbide Mononitrate (Imdur) 30 mg PO DAILY [facility] Stop: 07/09/18 08:59 Last Admin: 05/13/18 09:55 Dose: 30 mg Levothyroxine Sodium (Synthroid) 0.125 mg PO DAILY@0730 [facility] Stop: 07/08/18 07:29 Last Admin: 05/14/18 06:34 Dose: 0.125 mg Magnesium Hydroxide (Milk Of Magnesia) 30 ml PO HS PRN PRN Reason: Constipation Magnesium Hydroxide (Milk Of Magnesia) 30 ml PO DAILY [facility] Stop: 07/08/18 08:59 Last Admin: 05/13/18 09:55 Dose: Not Given Miscellaneous (Gentamicin Iv Per Pharmacy) 1 ea MC PRN PRN PRN Reason: PROTOCOL Stop: 07/12/18 13:28 Multivitamins/Vitamin C (Theragran) 1 tab PO DAILY [facility] Stop: 07/08/18 08:59 Last Admin: 05/13/18 09:55 Dose: 1 tab Pantoprazole Sodium (Protonix) 40 mg PO DAILY@0730 [facility] Stop: 07/08/18 07:29 Last Admin: 05/14/18 06:34 Dose: 40 mg Potassium Chloride (Klor-Con) 10 meq PO DAILY [facility] Stop: 07/08/18 08:59 Last Admin: 05/13/18 09:55 Dose: 10 meq Rivaroxaban (Xarelto) 10 mg PO DAILY [facility] Stop: 07/09/18 08:59 Last Admin: 05/13/18 09:55 Dose: 10 mg Simethicone (Mylicon) 80 mg PO TID [facility] Stop: 07/08/18 08:59 Last Admin: 05/13/18 20:33 Dose: 80 mg Trazodone HCl (Desyrel) 50 mg PO HS [facility]; Protocol Stop: 07/08/18 20:59 Last Admin: 05/13/18 20:33 Dose: 50 mg Zolpidem Tartrate (Ambien) 5 mg PO HS PRN PRN Reason: Insomnia Stop: 07/08/18 00:28 General: Alert, Oriented x3, No acute distress HEENT: Atraumatic, PERRLA Neck: Supple Cardiovascular: Regular rate, Normal S1, Normal S2 Lungs: Clear to auscultation Abdomen: Bowel sounds, Soft Extremities: no Clubbing, no Cyanosis, no Edema Neurological: Normal gait Assessment/Plan - Assessment Assessment: psychosis diabetes mellitus UTI Hypothyroidism depression htn hyperlipidemia elevated LFTs - Plan Plan: admit to [facility] order Keflex PO Levothyroxine PO Nutritional Asmnt/Malnutr-PDOC - Dietary Evaluation Malnutrition Findings (Please click <Entered> for more info): Nutritional Asmnt/Malnutrition Start: 05/11/18 16: 34 Text: Status: Complete Freq: Protocol: Document 05/11/18 16:36 LCDARRONG (Rec: 05/11/18 16:44 [email or web address]) Nutritional Asmnt/Malnutrition Patient General Information Nutritional Screening Moderate Risk Diagnosis depression Pertinent Medical Hx/Surgical Hx HTn, dyslipidemia, depression Subjective Information PT seen lying in bed at time of visit, awake, stated he has good appetite, no question about food so fat. Per EMR, PO intake 75%. Current Diet Order/ Nutrition Support LCS CAMELIA Pertinent Medications vit C, lipitor, iron, lasix, levemir, synthroid, theragran, protonix, kcl Pertinent Labs 2/6 POC 150, 2/7 POC 192 2/5 BUN 57, Cr 2.4, Glucose 147, alb 3.7 Nutritional Hx/Data Height 1.83 m Height (Calculated Centimeters) 182.9 Current Weight (lbs) 74.843 kg Weight (Calculated Kilograms) 74.8 Weight (Calculated Grams) 84558.7 [place] Body Weight 178 Body Mass Index (BMI) 22.4 Weight Status Approriate GI Symptoms GI Symptoms None Last BM 2/3 Difficult in: None Skin Integrity/Comment: intact Current %PO Good (75-100%) Estimated Nutritional Goals BEE in Kcals: Using Current wt Calories/Kcals/Kg 25-30 Kcals Calculated 2386-8686 Protein: Using Current wt Protein g/k.7 monitor renal labs Protein Calculated 53 Fluid: ml 1875-2250ml (1ml/kcal) Nutritional Problem 1. Problem Problem altered nutrition related labs Etiology possible renal dysfunction Signs/Symptoms: BUN 57, Cr 2.4 No current Nutrition Prob Problem N/A Malnutrition Alert Is there a minimum of two criteria No selected? Query Text:Check all the applicable criteria. A minimum of two criteria are recommended for diagnosis of either severe or non-severe malnutrition. Malnutrition Related to Morbid Obesity Malnutrition related to morbid obesity No Intervention/Recommendation Comments 1. Continue with CAMELIA LCS diet as ordered. Verified with RN regarding LCS diet means no concerntrated sweets. 2. recommend limit protein intake d/t elevated BUN/Cr. Serve 1/2 portion meat at lunch and dinner. 3. Monitor PO intake, wt, labs and skin integrity 4. F/U as low risk in 7 days Expected Outcomes/Goals Expected Outcomes/Goals 1. PO intake to meet at least 75% of nutritional needs. 2. Wt stability, skin to remain intact, labs to approach WNL.
[2018-05-14] MEDS: Potassium Chloride 10 mEq ER Tab PO SCH (09:57)
[2018-05-14] MEDS: Ferrous Sulfate 325 MG TAB PO SCH ×3 (09:57→20:54)
[2018-05-14] MEDS: Multivitamin Tab PO SCH (10:07)
[2018-05-14] MEDS: Magnesium Hydroxide (MOM) 30 mL UDC PO SCH (10:08)
--- NOTE | 2018-05-14 14:08 | Diagnostic Imaging Report ---
Renal ultrasound HISTORY: Hydronephrosis, pyelonephritis. COMPARISON: None Technique: Sonography of the kidneys and urinary bladder was performed in multiple planes. FINDINGS: The right kidney measures 12.1 x 5.6 cm. There is a cyst within the superior pole measuring 1.9 x 1.8 cm. No hydronephrosis. The left kidney measures 10.4 x 6.5 cm. No focal lesions or hydronephrosis. There is abnormal echogenic area along the dependent portion of the urinary bladder which may represent debris or clot or other mass lesions. IMPRESSION: No evidence of hydronephrosis. 1.9 x 1.8 cm right renal cyst. Large area of debris, clot or other mass lesion along the dependent portion of the urinary bladder. Clinical correlation is recommended.
[2018-05-14] MEDS: Gentamicin 80 mg/2mL Vial IM SCH (14:38)
[2018-05-14] MEDS: Insulin Detemir 100 units/mL 10mL Vial SUBQ SCH (20:52)
--- NOTE | 2018-05-14 22:20 | Progress Notes ---
DATE: 05/14/2018 PSYCHOLOGY PROGRESS NOTE SUBJECTIVE: The patient is seen and is interviewed. Case is discussed with staff. The patient presents as depressed. The staff reports the patient continues to isolate and is withdrawn. The patient stated that his nephew visited him and encouraged him to follow through with the treatment being offered. The patient continues to be confused about his condition and what he needs to do to participate in treatment. OBJECTIVE: Mood is depressed. Affect is constricted. Thought process shows to be confused, but somewhat goal oriented. The patient denied any hallucinations or delusions. The patient's behavior is isolative and withdrawn. ASSESSMENT AND PLAN: The patient continues to be depressed. We provided cognitive behavioral therapy to decrease the patient's depression. We encouraged the patient to participate in the milieu therapy. We provided coping strategies for phase of life issues. We provided remotivation for the patient to become compliant and stay comply with all aspects of his care and treatment. We will follow up in 2-3 days to continue the present treatment. JOB# [id number] TRA
--- NOTE | 2018-05-14 23:47 | Infectious Disease Prog Note ---
Infectious Disease Subjective - Review of Systems Service Date: 05/14/18 Subjective: NO new change, no fever. Infectious Disease Objective - Results Result Diagrams: 05/08/18 18:40 05/14/18 06:55 Recent Labs: Laboratory Last Values WBC 12.3 Th/cmm (4.8-10.8) H 05/08/18 18:40 RBC 3.69 Mil/cmm (3.80-5.80) L 05/08/18 18:40 Hgb 11.0 gm/dL (12-16) L 05/08/18 18:40 Hct 32.8 % (41.0-60) L 05/08/18 18:40 MCV 89.0 fl (80-99) 05/08/18 18:40 MCH 29.9 pg (27.0-31.0) 05/08/18 18:40 MCHC Differential 33.6 pg (28.0-36.0) 05/08/18 18:40 RDW 15.8 % (11.5-20.0) 05/08/18 18:40 Plt Count 448 Th/cmm (150-400) H 05/08/18 18:40 MPV 6.8 fl 05/08/18 18:40 Neutrophils % 62.3 % (40.0-80.0) 05/08/18 18:40 Lymphocytes % 28.6 % (20.0-50.0) 05/08/18 18:40 Monocytes % 5.5 % (2.0-10.0) 05/08/18 18:40 Eosinophils % 2.8 % (0.0-5.0) 05/08/18 18:40 Basophils % 0.8 % (0.0-2.0) 05/08/18 18:40 Sodium 137 mEq/L (136-145) 05/14/18 06:55 Potassium 4.5 mEq/L (3.5-5.1) 05/14/18 06:55 Chloride 107 mEq/L (98-107) 05/14/18 06:55 Carbon Dioxide 22.0 mEq/L (21.0-31.0) 05/14/18 06:55 Anion Gap 12.5 (7.0-16.0) 05/14/18 06:55 BUN 59 mg/dL (7-25) H 05/14/18 06:55 Creatinine 2.2 mg/dL (0.7-1.3) H 05/14/18 06:55 Est GFR ( Amer) TNP 05/14/18 06:55 Est GFR (Non-Af Amer) TNP 05/14/18 06:55 BUN/Creatinine Ratio 26.8 05/14/18 06:55 Glucose 161 mg/dL (70-105) H 05/14/18 06:55 POC Glucose 163 MG/DL (70 - 105) H 05/14/18 20:14 Calcium 8.9 mg/dL (8.6-10.3) 05/14/18 06:55 Total Bilirubin 0.3 mg/dL (0.3-1.0) 05/08/18 18:40 AST 74 U/L (13-39) H 05/08/18 18:40 ALT 157 U/L (7-52) H 05/08/18 18:40 Alkaline Phosphatase 85 U/L (34-104) 05/08/18 18:40 Ammonia 41 umol/L (16-53) 05/09/18 07:50 Troponin I 0.01 ng/mL (0.01-0.05) 05/08/18 18:30 Total Protein 7.4 gm/dL (6.0-8.3) 05/08/18 18:40 Albumin 3.7 gm/dL (4.2-5.5) L 05/08/18 18:40 Globulin 3.7 gm/dL 05/08/18 18:40 Albumin/Globulin Ratio 1.0 (1.0-1.8) 05/08/18 18:40 Triglycerides 102 mg/dL (<150) 05/08/18 18:40 Cholesterol 83 mg/dL (<200) 05/08/18 18:40 LDL Cholesterol Direct 54 mg/dL (75-193) L 05/08/18 18:40 HDL Cholesterol 26 mg/dL (23-92) 05/08/18 18:40 TSH 10.76 uIU/ml (0.34-5.60) H 05/08/18 18:40 Urine Source CLEAN C 05/08/18 22:00 Urine Color YELLOW 05/08/18 22:00 Urine Clarity HAZY (CLEAR) 05/08/18 22:00 Urine pH 5.5 (4.6 - 8.0) 05/08/18 22:00 Ur Specific [place] 1.020 (1.005-1.030) 05/08/18 22:00 Urine Protein NEGATIVE mg/dL (NEGATIVE) 05/08/18 22:00 Urine Glucose (UA) NEGATIVE mg/dL (NEGATIVE) 05/08/18 22:00 Urine Ketones NEGATIVE mg/dL (NEGATIVE) 05/08/18 22:00 Urine Blood TRACE (NEGATIVE) 05/08/18 22:00 Urine Nitrate NEGATIVE (NEGATIVE) 05/08/18 22:00 Urine Bilirubin NEGATIVE (NEGATIVE) 05/08/18 22:00 Urine Urobilinogen 0.2 E.U./dL (0.2 - 1.0) 05/08/18 22:00 Ur Leukocyte Esterase MODERATE (NEGATIVE) H 05/08/18 22:00 Urine RBC 0-2 /hpf (0-5) H 05/08/18 22:00 Urine WBC 10-25 /hpf (0-5) H 05/08/18 22:00 Ur Epithelial Cells RARE /lpf (FEW) 05/08/18 22:00 Urine Bacteria MODERATE /hpf (NONE SEEN) H 05/08/18 22:00 Salicylates < 25.0 mg/L (30.0-100.0) L 05/08/18 18:40 Urine Opiates Screen POSITIVE (NEGATIVE) H 05/08/18 22:00 Urine Methadone Screen NEGATIVE (NEGATIVE) 05/08/18 22:00 Acetaminophen < 10.0 ug/mL (10.0-30.0) L 05/08/18 18:40 Ur Barbiturates Screen NEGATIVE (NEGATIVE) 05/08/18 22:00 Ur Tricyclics Screen NEGATIVE (NEGATIVE) 05/08/18 22:00 Ur Phencyclidine Scrn NEGATIVE (NEGATIVE) 05/08/18 22:00 Amphetamines Screen NEGATIVE (NEGATIVE) 05/08/18 22:00 U Methamphetamines Scrn NEGATIVE (NEGATIVE) 05/08/18 22:00 U Benzodiazepines Scrn NEGATIVE (NEGATIVE) 05/08/18 22:00 U Cocaine Metab Screen NEGATIVE (NEGATIVE) 05/08/18 22:00 U Cannabinoids Screen NEGATIVE (NEGATIVE) 05/08/18 22:00 Ethyl Alcohol < 10 mg/dL (0-10) 05/08/18 18:40 RPR NONREACTIVE (NONREACTIVE) 05/08/18 18:40 Hepatitis A IgM Ab Negative (Negative) 05/09/18 07:50 Hep Bs Antigen Negative (Negative) 05/09/18 07:50 Hep B Core IgM Ab Negative (Negative) 05/09/18 07:50 Hepatitis C Antibody <0.1 s/co ratio (0.0-0.9) 05/09/18 07:50 - Physical Exam Vitals and I&O: Vital Signs Temp 98.1 F 05/14/18 21:04 Pulse 60 05/14/18 21:04 Resp 18 05/14/18 21:04 BP 104/55 05/14/18 21:04 Pulse Ox 96 05/14/18 21:04 Intake & Output 05/14/18 05/14/18 05/15/18 06:59 18:59 06:59 Intake Total 240 1000 120 Balance 240 1000 120 Intake: Oral 240 1000 120 Other: # Voids 2 4 1 # Bowel Movements 1 0 Active Medications: Current Medications Acetaminophen (Tylenol) 650 mg PO Q4HR PRN PRN Reason: Mild Pain / Temp above 100 Stop: 07/08/18 00:28 Acetaminophen (Tylenol) 650 mg PO Q6HR PRN PRN Reason: Pain (Mild) Stop: 07/08/18 06:17 Acetaminophen/Hydrocodone Bitart ([place] 10 Mg/325 Mg) 1 tab PO Q4HR PRN PRN Reason: Pain (Moderate) Stop: 07/08/18 00:29 Al Hydrox/Mg Hydrox/Simethicone (Maalox) 30 ml PO Q4HR PRN PRN Reason: GI DISTRESS Stop: 07/08/18 00:28 Amiodarone HCl (Cordarone) 200 mg PO DAILY [facility] Stop: 07/09/18 08:59 Last Admin: 05/14/18 09:57 Dose: 200 mg Ascorbic Acid (Vitamin C) 500 mg PO TID [facility] Stop: 07/08/18 08:59 Last Admin: 05/14/18 20:53 Dose: 500 mg Aspirin (Ecotrin) 81 mg PO DAILY [facility] Stop: 07/08/18 08:59 Last Admin: 05/14/18 10:07 Dose: 81 mg Atorvastatin Calcium (Lipitor) 40 mg PO DAILY [facility] Stop: 07/08/18 08:59 Last Admin: 05/14/18 09:57 Dose: 40 mg Bisacodyl (Dulcolax 10 Mg Supp) 10 mg RC DAILY PRN PRN Reason: Constipation Stop: 07/08/18 00:29 Carvedilol (Coreg) 6.25 mg PO BIDBRS [facility] Stop: 07/08/18 07:59 Last Admin: 05/14/18 17:24 Dose: Not Given Citalopram Hydrobromide (Celexa) 40 mg PO DAILY [facility] Stop: 07/08/18 08:59 Last Admin: 05/14/18 09:55 Dose: 40 mg Ferrous Sulfate (Iron) 325 mg PO TID [facility] Stop: 07/08/18 08:59 Last Admin: 05/14/18 20:54 Dose: 325 mg Furosemide (Lasix) 40 mg PO DAILY [facility] Stop: 07/08/18 08:59 Last Admin: 05/14/18 10:07 Dose: 40 mg Gabapentin (Neurontin) 100 mg PO TID [facility] Stop: 07/08/18 08:59 Last Admin: 05/14/18 20:53 Dose: 100 mg Gentamicin Sulfate (Garamycin) 112 mg IM Q24HR@1400 [facility] Stop: 05/17/18 16:00 Last Admin: 05/14/18 14:38 Dose: 112 mg Insulin Detemir (Levemir Insulin) 10 units SUBQ HS [facility] Stop: 07/08/18 20:59 Last Admin: 05/14/18 20:52 Dose: 12 unit Isosorbide Mononitrate (Imdur) 30 mg PO DAILY [facility] Stop: 07/09/18 08:59 Last Admin: 05/14/18 09:58 Dose: 30 mg Levothyroxine Sodium (Synthroid) 0.125 mg PO DAILY@0730 [facility] Stop: 07/08/18 07:29 Last Admin: 05/14/18 06:34 Dose: 0.125 mg Magnesium Hydroxide (Milk Of Magnesia) 30 ml PO HS PRN PRN Reason: Constipation Magnesium Hydroxide (Milk Of Magnesia) 30 ml PO DAILY [facility] Stop: 07/08/18 08:59 Last Admin: 05/14/18 10:08 Dose: 30 ml Miscellaneous (Gentamicin Iv Per Pharmacy) 1 ea MC PRN PRN PRN Reason: PROTOCOL Stop: 05/17/18 16:00 Miscellaneous (Clinical Monitoring) 1 ea MC DAILY PRN PRN Reason: RENAL DODSING Stop: 07/13/18 08:44 Multivitamins/Vitamin C (Theragran) 1 tab PO DAILY [facility] Stop: 07/08/18 08:59 Last Admin: 05/14/18 10:07 Dose: 1 tab Pantoprazole Sodium (Protonix) 40 mg PO DAILY@0730 [facility] Stop: 07/08/18 07:29 Last Admin: 05/14/18 06:34 Dose: 40 mg Potassium Chloride (Klor-Con) 10 meq PO DAILY [facility] Stop: 07/08/18 08:59 Last Admin: 05/14/18 09:57 Dose: 10 meq Rivaroxaban (Xarelto) 10 mg PO DAILY [facility] Stop: 07/09/18 08:59 Last Admin: 05/14/18 09:58 Dose: 10 mg Simethicone (Mylicon) 80 mg PO TID [facility] Stop: 07/08/18 08:59 Last Admin: 05/14/18 20:54 Dose: 80 mg Trazodone HCl (Desyrel) 50 mg PO HS [facility]; Protocol Stop: 07/08/18 20:59 Last Admin: 05/14/18 20:53 Dose: 50 mg Zolpidem Tartrate (Ambien) 5 mg PO HS PRN PRN Reason: Insomnia Stop: 07/08/18 00:28 General: no acute distress, well developed, well nourished HEENT: atraumatic, normocephalic, PERRLA, EOMI Neck: supple, no thyromegaly, no lymphadenopathy, no rigid Cardiovascular: S1S2, regular Lungs: clear to auscultation bilaterally, clear to percussion Abdomen: soft, no tender, no distended, no rebound Extremities: no cyanosis, no clubbing, no edema Neurological: awake, alert, oriented Skin: intact Infectious Disease Assmt/Plan - Assessment Assessment: 1. Pseudomonas urinary tract infection. 2. Chronic renal failure. 3. Hypothyroidism. 4. Psychosis. 5. Depression. 6. Hypertension. 7. Hyperlipidemia. 8. Elevated LFTs. 9. mass or debris in urinary bladder. - Plan Plan: Continue genta IM for 5 days. Urology consult as inpatient or outpatient. Nutritional Asmnt/Malnutr-PDOC - Dietary Evaluation Malnutrition Findings (Please click <Entered> for more info): Nutritional Asmnt/Malnutrition Start: 05/11/18 16: 34 Text: Status: Complete Freq: Protocol: Document 05/11/18 16:36 AKOSUA (Rec: 05/11/18 16:44 [id number]) Nutritional Asmnt/Malnutrition Patient General Information Nutritional Screening Moderate Risk Diagnosis depression Pertinent Medical Hx/Surgical Hx HTn, dyslipidemia, depression Subjective Information PT seen lying in bed at time of visit, awake, stated he has good appetite, no question about food so fat. Per EMR, PO intake 75%. Current Diet Order/ Nutrition Support LCS CAMELIA Pertinent Medications vit C, lipitor, iron, lasix, levemir, synthroid, theragran, protonix, kcl Pertinent Labs 05/09 POC 150, 2 POC 192 2/5 BUN 57, Cr 2.4, Glucose 147, alb 3.7 Nutritional Hx/Data Height 1.83 m Height (Calculated Centimeters) 182.9 Current Weight (lbs) 74.843 kg Weight (Calculated Kilograms) 74.8 Weight (Calculated Grams) 19495.7 [place] Body Weight 178 Body Mass Index (BMI) 22.4 Weight Status Approriate GI Symptoms GI Symptoms None Last BM 2/3 Difficult in: None Skin Integrity/Comment: intact Current %PO Good (75-100%) Estimated Nutritional Goals BEE in Kcals: Using Current wt Calories/Kcals/Kg 25-30 Kcals Calculated 4801-1659 Protein: Using Current wt Protein g/k.7 monitor renal labs Protein Calculated 53 Fluid: ml 1875-2250ml (1ml/kcal) Nutritional Problem 1. Problem Problem altered nutrition related labs Etiology possible renal dysfunction Signs/Symptoms: BUN 57, Cr 2.4 No current Nutrition Prob Problem N/A Malnutrition Alert Is there a minimum of two criteria No selected? Query Text:Check all the applicable criteria. A minimum of two criteria are recommended for diagnosis of either severe or non-severe malnutrition. Malnutrition Related to Morbid Obesity Malnutrition related to morbid obesity No Intervention/Recommendation Comments 1. Continue with CAMELIA [facility] diet as ordered. Verified with RN regarding LCS diet means no concerntrated sweets. 2. recommend limit protein intake d/t elevated BUN/Cr. Serve 1/2 portion meat at lunch and dinner. 3. Monitor PO intake, wt, labs and skin integrity 4. F/U as low risk in 7 days Expected Outcomes/Goals Expected Outcomes/Goals 1. PO intake to meet at least 75% of nutritional needs. 2. Wt stability, skin to remain intact, labs to approach WNL.
--- NOTE | 2018-05-15 00:53 | Progress Notes ---
DATE: 05/14/2018 SUBJECTIVE: Staff was spoken to. The patient is interviewed. Mood is noted to be less irritable. Affect is appropriate. The patient's coping skills are noted to be improving. Sleep and appetite are also noted to be improving. The patient is stating that he has been able to cope a little bit better with the medication. No side effects to the medications are noted at this time. ASSESSMENT: The patient's depression is resolving. PLAN: To continue the patient with the supportive therapy and followup. JOB# [id number]
[2018-05-15] MEDS: Levothyroxine 0.125 Mg Tab PO SCH (06:51)
[2018-05-15] MEDS: Pantoprazole 40 mg EC Tab PO SCH (06:51)
[2018-05-15 07:03] LABS: % BASOPHILS 0.7 % (0.0-2.0); % LYMPHOCYTES 23.6 % (20.0-50.0); % NEUTROPHILS 65.7 % (40.0-80.0); BASOPHILE ABSOLUTE 0.1 Th/cumm (0-0.2); EOSINOPHILE ABSOLUTE 0.4 Th/cmm (0.1-0.4); HEMATOCRIT 31.1 % (41.0-60); HEMOGLOBIN 10.6 gm/dL (12-16); LYMPHOCYTE ABSOLUTE 3.1 Th/cmm (1.5-3.0); MEAN CELL VOLUME 85.1 fl (80-99); MEAN CORPUSCULAR HEMOGLOBIN 29.1 pg (27.0-31.0); MEAN CORPUSCULAR HGB CONC 34.3 pg (28.0-36.0); MEAN PLATELET VOLUME 6.7 fl; MONOCYTE ABSOLUTE 0.9 Th/cmm (0.3-1.0); NEUTROPHILE ABSOLUTE 8.7 Th/cmm (1.8-8.0); PLATELET COUNT 377 Th/cmm (150-400); RED BLOOD COUNT 3.65 Mil/cmm (3.80-5.80); RED CELL DISTRIBUTION WIDTH 16.2 % (11.5-20.0); WHITE BLOOD COUNT 13.2 Th/cmm (4.8-10.8)
[2018-05-15 07:27] LABS: ANION GAP 12.1 (7.0-16.0); BUN - UREA NITROGEN 66 mg/dL (7-25); CARBON DIOXIDE 22.3 mEq/L (21.0-31.0); CHLORIDE 107 mEq/L (98-107); CREATININE - SERUM 2.4 mg/dL (0.7-1.3); GLUCOSE 189 mg/dL (70-105); POTASSIUM SERUM 4.4 mEq/L (3.5-5.1); SODIUM SERUM 137 mEq/L (136-145)
[2018-05-15 07:28] LABS: CALCIUM SERUM 8.9 mg/dL (8.6-10.3)
--- NOTE | 2018-05-15 08:09 | General Progress Note ---
Subjective - Review of Systems Service Date: 05/15/18 Subjective: Patient is awake, alert, afebrile VS T 97.1 P 60 R 18 BP 104/53 Objective - Results Result Diagrams: 05/15/18 06:40 05/15/18 06:40 Recent Labs: Laboratory Last Values WBC 13.2 Th/cmm (4.8-10.8) H 05/15/18 06:40 RBC 3.65 Mil/cmm (3.80-5.80) L 05/15/18 06:40 Hgb 10.6 gm/dL (12-16) L 05/15/18 06:40 Hct 31.1 % (41.0-60) L 05/15/18 06:40 MCV 85.1 fl (80-99) 05/15/18 06:40 MCH 29.1 pg (27.0-31.0) 05/15/18 06:40 MCHC Differential 34.3 pg (28.0-36.0) 05/15/18 06:40 RDW 16.2 % (11.5-20.0) 05/15/18 06:40 Plt Count 377 Th/cmm (150-400) 05/15/18 06:40 MPV 6.7 fl 05/15/18 06:40 Neutrophils % 65.7 % (40.0-80.0) 05/15/18 06:40 Lymphocytes % 23.6 % (20.0-50.0) 05/15/18 06:40 Monocytes % 7.0 % (2.0-10.0) 05/15/18 06:40 Eosinophils % 3.0 % (0.0-5.0) 05/15/18 06:40 Basophils % 0.7 % (0.0-2.0) 05/15/18 06:40 Sodium 137 mEq/L (136-145) 05/15/18 06:40 Potassium 4.4 mEq/L (3.5-5.1) 05/15/18 06:40 Chloride 107 mEq/L (98-107) 05/15/18 06:40 Carbon Dioxide 22.3 mEq/L (21.0-31.0) 05/15/18 06:40 Anion Gap 12.1 (7.0-16.0) 05/15/18 06:40 BUN 66 mg/dL (7-25) H 05/15/18 06:40 Creatinine 2.4 mg/dL (0.7-1.3) H 05/15/18 06:40 Est GFR ( Amer) TNP 05/15/18 06:40 Est GFR (Non-Af Amer) TNP 05/15/18 06:40 BUN/Creatinine Ratio 27.5 05/15/18 06:40 Glucose 189 mg/dL (70-105) H 05/15/18 06:40 POC Glucose 163 MG/DL (70 - 105) H 05/14/18 20:14 Calcium 8.9 mg/dL (8.6-10.3) 05/15/18 06:40 Total Bilirubin 0.3 mg/dL (0.3-1.0) 05/08/18 18:40 AST 74 U/L (13-39) H 05/08/18 18:40 ALT 157 U/L (7-52) H 05/08/18 18:40 Alkaline Phosphatase 85 U/L (34-104) 05/08/18 18:40 Ammonia 41 umol/L (16-53) 05/09/18 07:50 Troponin I 0.01 ng/mL (0.01-0.05) 05/08/18 18:30 Total Protein 7.4 gm/dL (6.0-8.3) 05/08/18 18:40 Albumin 3.7 gm/dL (4.2-5.5) L 05/08/18 18:40 Globulin 3.7 gm/dL 05/08/18 18:40 Albumin/Globulin Ratio 1.0 (1.0-1.8) 05/08/18 18:40 Triglycerides 102 mg/dL (<150) 05/08/18 18:40 Cholesterol 83 mg/dL (<200) 05/08/18 18:40 LDL Cholesterol Direct 54 mg/dL (75-193) L 05/08/18 18:40 HDL Cholesterol 26 mg/dL (23-92) 05/08/18 18:40 TSH 10.76 uIU/ml (0.34-5.60) H 05/08/18 18:40 Urine Source CLEAN C 05/08/18 22:00 Urine Color YELLOW 05/08/18 22:00 Urine Clarity HAZY (CLEAR) 05/08/18 22:00 Urine pH 5.5 (4.6 - 8.0) 05/08/18 22:00 Ur Specific [place] 1.020 (1.005-1.030) 05/08/18 22:00 Urine Protein NEGATIVE mg/dL (NEGATIVE) 05/08/18 22:00 Urine Glucose (UA) NEGATIVE mg/dL (NEGATIVE) 05/08/18 22:00 Urine Ketones NEGATIVE mg/dL (NEGATIVE) 05/08/18 22:00 Urine Blood TRACE (NEGATIVE) 05/08/18 22:00 Urine Nitrate NEGATIVE (NEGATIVE) 05/08/18 22:00 Urine Bilirubin NEGATIVE (NEGATIVE) 05/08/18 22:00 Urine Urobilinogen 0.2 E.U./dL (0.2 - 1.0) 05/08/18 22:00 Ur Leukocyte Esterase MODERATE (NEGATIVE) H 05/08/18 22:00 Urine RBC 0-2 /hpf (0-5) H 05/08/18 22:00 Urine WBC 10-25 /hpf (0-5) H 05/08/18 22:00 Ur Epithelial Cells RARE /lpf (FEW) 05/08/18 22:00 Urine Bacteria MODERATE /hpf (NONE SEEN) H 05/08/18 22:00 Salicylates < 25.0 mg/L (30.0-100.0) L 05/08/18 18:40 Urine Opiates Screen POSITIVE (NEGATIVE) H 05/08/18 22:00 Urine Methadone Screen NEGATIVE (NEGATIVE) 05/08/18 22:00 Acetaminophen < 10.0 ug/mL (10.0-30.0) L 05/08/18 18:40 Ur Barbiturates Screen NEGATIVE (NEGATIVE) 05/08/18 22:00 Ur Tricyclics Screen NEGATIVE (NEGATIVE) 05/08/18 22:00 Ur Phencyclidine Scrn NEGATIVE (NEGATIVE) 05/08/18 22:00 Amphetamines Screen NEGATIVE (NEGATIVE) 05/08/18 22:00 U Methamphetamines Scrn NEGATIVE (NEGATIVE) 05/08/18 22:00 U Benzodiazepines Scrn NEGATIVE (NEGATIVE) 05/08/18 22:00 U Cocaine Metab Screen NEGATIVE (NEGATIVE) 05/08/18 22:00 U Cannabinoids Screen NEGATIVE (NEGATIVE) 05/08/18 22:00 Ethyl Alcohol < 10 mg/dL (0-10) 05/08/18 18:40 RPR NONREACTIVE (NONREACTIVE) 05/08/18 18:40 Hepatitis A IgM Ab Negative (Negative) 05/09/18 07:50 Hep Bs Antigen Negative (Negative) 05/09/18 07:50 Hep B Core IgM Ab Negative (Negative) 05/09/18 07:50 Hepatitis C Antibody <0.1 s/co ratio (0.0-0.9) 05/09/18 07:50 - Physical Exam Vitals and I&O: Vital Signs Temp 98.2 F 05/15/18 06:33 Pulse 60 05/15/18 06:33 Resp 19 05/15/18 06:33 BP 117/47 05/15/18 06:33 Pulse Ox 97 05/15/18 06:33 Intake & Output 05/14/18 05/15/18 05/15/18 18:59 06:59 18:59 Intake Total 1000 180 Balance 1000 180 Intake: Oral 1000 180 Other: # Voids 4 1 # Bowel Movements 1 0 Active Medications: Current Medications Acetaminophen (Tylenol) 650 mg PO Q4HR PRN PRN Reason: Mild Pain / Temp above 100 Stop: 07/08/18 00:28 Acetaminophen (Tylenol) 650 mg PO Q6HR PRN PRN Reason: Pain (Mild) Stop: 07/08/18 06:17 Acetaminophen/Hydrocodone Bitart ([place] 10 Mg/325 Mg) 1 tab PO Q4HR PRN PRN Reason: Pain (Moderate) Stop: 07/08/18 00:29 Al Hydrox/Mg Hydrox/Simethicone (Maalox) 30 ml PO Q4HR PRN PRN Reason: GI DISTRESS Stop: 07/08/18 00:28 Amiodarone HCl (Cordarone) 200 mg PO DAILY [facility] Stop: 07/09/18 08:59 Last Admin: 05/14/18 09:57 Dose: 200 mg Ascorbic Acid (Vitamin C) 500 mg PO TID [facility] [place] Stop: 07/08/18 08:59 Last Admin: 05/14/18 20:53 Dose: 500 mg Aspirin (Ecotrin) 81 mg PO DAILY [facility] [place] Stop: 07/08/18 08:59 Last Admin: 05/14/18 10:07 Dose: 81 mg Atorvastatin Calcium (Lipitor) 40 mg PO DAILY [facility] [place] Stop: 07/08/18 08:59 Last Admin: 05/14/18 09:57 Dose: 40 mg Bisacodyl (Dulcolax 10 Mg Supp) 10 mg RC DAILY PRN PRN Reason: Constipation Stop: 07/08/18 00:29 Carvedilol (Coreg) 6.25 mg PO BIDBRS [facility] Stop: 07/08/18 07:59 Last Admin: 05/14/18 17:24 Dose: Not Given Citalopram Hydrobromide (Celexa) 40 mg PO DAILY [facility] Stop: 07/08/18 08:59 Last Admin: 05/14/18 09:55 Dose: 40 mg Ferrous Sulfate (Iron) 325 mg PO TID [facility] [place] Stop: 07/08/18 08:59 Last Admin: 05/14/18 20:54 Dose: 325 mg Furosemide (Lasix) 40 mg PO DAILY [facility] [place] Stop: 07/08/18 08:59 Last Admin: 05/14/18 10:07 Dose: 40 mg Gabapentin (Neurontin) 100 mg PO TID [facility] [place] Stop: 07/08/18 08:59 Last Admin: 05/14/18 20:53 Dose: 100 mg Gentamicin Sulfate (Garamycin) 112 mg IM Q24HR@1400 [facility] [place] Stop: 05/17/18 16:00 Last Admin: 05/14/18 14:38 Dose: 112 mg Insulin Detemir (Levemir Insulin) 10 units SUBQ HS [facility] [place] Stop: 07/08/18 20:59 Last Admin: 05/14/18 20:52 Dose: 12 unit Isosorbide Mononitrate (Imdur) 30 mg PO DAILY [facility] [place] Stop: 07/09/18 08:59 Last Admin: 05/14/18 09:58 Dose: 30 mg Levothyroxine Sodium (Synthroid) 0.125 mg PO DAILY@0730 [facility] [place] Stop: 07/08/18 07:29 Last Admin: 05/15/18 06:51 Dose: 0.125 mg Magnesium Hydroxide (Milk Of Magnesia) 30 ml PO HS PRN PRN Reason: Constipation Magnesium Hydroxide (Milk Of Magnesia) 30 ml PO DAILY [facility] [place] Stop: 07/08/18 08:59 Last Admin: 05/14/18 10:08 Dose: 30 ml Miscellaneous (Gentamicin Iv Per Pharmacy) 1 ea MC PRN PRN PRN Reason: PROTOCOL Stop: 05/17/18 16:00 Miscellaneous (Clinical Monitoring) 1 ea MC DAILY PRN PRN Reason: RENAL DODSING Stop: 07/13/18 08:44 Multivitamins/Vitamin C (Theragran) 1 tab PO DAILY [facility] [place] Stop: 07/08/18 08:59 Last Admin: 05/14/18 10:07 Dose: 1 tab Pantoprazole Sodium (Protonix) 40 mg PO DAILY@0730 [facility] [place] Stop: 07/08/18 07:29 Last Admin: 05/15/18 06:51 Dose: 40 mg Potassium Chloride (Klor-Con) 10 meq PO DAILY [facility] [place] Stop: 07/08/18 08:59 Last Admin: 05/14/18 09:57 Dose: 10 meq Rivaroxaban (Xarelto) 10 mg PO DAILY [facility] [place] Stop: 07/09/18 08:59 Last Admin: 05/14/18 09:58 Dose: 10 mg Simethicone (Mylicon) 80 mg PO TID [facility] [place] Stop: 07/08/18 08:59 Last Admin: 05/14/18 20:54 Dose: 80 mg Trazodone HCl (Desyrel) 50 mg PO HS [facility]; Protocol Stop: 07/08/18 20:59 Last Admin: 05/14/18 20:53 Dose: 50 mg Zolpidem Tartrate (Ambien) 5 mg PO HS PRN PRN Reason: Insomnia Stop: 07/08/18 00:28 General: Alert, Oriented x3, No acute distress HEENT: Atraumatic, PERRLA Neck: Supple Cardiovascular: Regular rate, Normal S1, Normal S2 Lungs: Clear to auscultation Abdomen: Bowel sounds, Soft Extremities: no Clubbing, no Cyanosis, no Edema Neurological: Normal gait Assessment/Plan - Assessment Assessment: psychosis diabetes mellitus UTI + Pseudomonas ... on Gentamycin IM x 5 days, will order urological consult. Hypothyroidism depression htn hyperlipidemia elevated LFTs - Plan Plan: admit to [facility] will order Keflex PO Levothyroxine PO Nutritional Asmnt/Malnutr-PDOC - Dietary Evaluation Malnutrition Findings (Please click <Entered> for more info): Nutritional Asmnt/Malnutrition Start: 05/11/18 16: 34 Text: Status: Complete Freq: Protocol: Document 05/11/18 16:36 LCDARRONG (Rec: 05/11/18 16:44 LCGIOVANNA [id number]) Nutritional Asmnt/Malnutrition Patient General Information Nutritional Screening Moderate Risk Diagnosis depression Pertinent Medical Hx/Surgical Hx HTn, dyslipidemia, depression Subjective Information PT seen lying in bed at time of visit, awake, stated he has good appetite, no question about food so fat. Per EMR, PO intake 75%. Current Diet Order/ Nutrition Support LCS CAMELIA Pertinent Medications vit C, lipitor, iron, lasix, levemir, synthroid, theragran, protonix, kcl Pertinent Labs 05/09 POC 150, 05/10 POC 192 2/5 BUN 57, Cr 2.4, Glucose 147, alb 3.7 Nutritional Hx/Data Height 1.83 m Height (Calculated Centimeters) 182.9 Current Weight (lbs) 74.843 kg Weight (Calculated Kilograms) 74.8 Weight (Calculated Grams) 28736.7 [place] Body Weight 178 Body Mass Index (BMI) 22.4 Weight Status Approriate GI Symptoms GI Symptoms None Last BM 2/3 Difficult in: None Skin Integrity/Comment: intact Current %PO Good (75-100%) Estimated Nutritional Goals BEE in Kcals: Using Current wt Calories/Kcals/Kg 25-30 Kcals Calculated [id number] Protein: Using Current wt Protein g/k.7 monitor renal labs Protein Calculated 53 Fluid: ml 1875-2250ml (1ml/kcal) Nutritional Problem 1. Problem Problem altered nutrition related labs Etiology possible renal dysfunction Signs/Symptoms: BUN 57, Cr 2.4 No current Nutrition Prob Problem N/A Malnutrition Alert Is there a minimum of two criteria No selected? Query Text:Check all the applicable criteria. A minimum of two criteria are recommended for diagnosis of either severe or non-severe malnutrition. Malnutrition Related to Morbid Obesity Malnutrition related to morbid obesity No Intervention/Recommendation Comments 1. Continue with CAMELIA LCS diet as ordered. Verified with RN regarding LCS diet means no concerntrated sweets. 2. recommend limit protein intake d/t elevated BUN/Cr. Serve 1/2 portion meat at lunch and dinner. 3. Monitor PO intake, wt, labs and skin integrity 4. F/U as low risk in 7 days Expected Outcomes/Goals Expected Outcomes/Goals 1. PO intake to meet at least 75% of nutritional needs. 2. Wt stability, skin to remain intact, labs to approach WNL.
[2018-05-15] MEDS: Ferrous Sulfate 325 MG TAB PO SCH ×3 (09:13→20:53)
[2018-05-15] MEDS: Multivitamin Tab PO SCH (09:13)
[2018-05-15] MEDS: Potassium Chloride 10 mEq ER Tab PO SCH (09:14)
[2018-05-15] MEDS: Magnesium Hydroxide (MOM) 30 mL UDC PO SCH (09:15)
[2018-05-15] MEDS: Gentamicin 80 mg/2mL Vial IM SCH (14:21)
--- NOTE | 2018-05-15 16:54 | Infectious Disease Prog Note ---
Infectious Disease Subjective - Review of Systems Service Date: 05/15/18 Subjective: NO new change, no fever. Infectious Disease Objective - Results Result Diagrams: 05/15/18 06:40 05/15/18 06:40 Recent Labs: Laboratory Last Values WBC 13.2 Th/cmm (4.8-10.8) H 05/15/18 06:40 RBC 3.65 Mil/cmm (3.80-5.80) L 05/15/18 06:40 Hgb 10.6 gm/dL (12-16) L 05/15/18 06:40 Hct 31.1 % (41.0-60) L 05/15/18 06:40 MCV 85.1 fl (80-99) 05/15/18 06:40 MCH 29.1 pg (27.0-31.0) 05/15/18 06:40 MCHC Differential 34.3 pg (28.0-36.0) 05/15/18 06:40 RDW 16.2 % (11.5-20.0) 05/15/18 06:40 Plt Count 377 Th/cmm (150-400) 05/15/18 06:40 MPV 6.7 fl 05/15/18 06:40 Neutrophils % 65.7 % (40.0-80.0) 05/15/18 06:40 Lymphocytes % 23.6 % (20.0-50.0) 05/15/18 06:40 Monocytes % 7.0 % (2.0-10.0) 05/15/18 06:40 Eosinophils % 3.0 % (0.0-5.0) 05/15/18 06:40 Basophils % 0.7 % (0.0-2.0) 05/15/18 06:40 Sodium 137 mEq/L (136-145) 05/15/18 06:40 Potassium 4.4 mEq/L (3.5-5.1) 05/15/18 06:40 Chloride 107 mEq/L (98-107) 05/15/18 06:40 Carbon Dioxide 22.3 mEq/L (21.0-31.0) 05/15/18 06:40 Anion Gap 12.1 (7.0-16.0) 05/15/18 06:40 BUN 66 mg/dL (7-25) H 05/15/18 06:40 Creatinine 2.4 mg/dL (0.7-1.3) H 05/15/18 06:40 Est GFR ( Amer) TNP 05/15/18 06:40 Est GFR (Non-Af Amer) TNP 05/15/18 06:40 BUN/Creatinine Ratio 27.5 05/15/18 06:40 Glucose 189 mg/dL (70-105) H 05/15/18 06:40 POC Glucose 163 MG/DL (70 - 105) H 05/14/18 20:14 Calcium 8.9 mg/dL (8.6-10.3) 05/15/18 06:40 Total Bilirubin 0.3 mg/dL (0.3-1.0) 05/08/18 18:40 AST 74 U/L (13-39) H 05/08/18 18:40 ALT 157 U/L (7-52) H 05/08/18 18:40 Alkaline Phosphatase 85 U/L (34-104) 05/08/18 18:40 Ammonia 41 umol/L (16-53) 05/09/18 07:50 Troponin I 0.01 ng/mL (0.01-0.05) 05/08/18 18:30 Total Protein 7.4 gm/dL (6.0-8.3) 05/08/18 18:40 Albumin 3.7 gm/dL (4.2-5.5) L 05/08/18 18:40 Globulin 3.7 gm/dL 05/08/18 18:40 Albumin/Globulin Ratio 1.0 (1.0-1.8) 05/08/18 18:40 Triglycerides 102 mg/dL (<150) 05/08/18 18:40 Cholesterol 83 mg/dL (<200) 05/08/18 18:40 LDL Cholesterol Direct 54 mg/dL (75-193) L 05/08/18 18:40 HDL Cholesterol 26 mg/dL (23-92) 05/08/18 18:40 TSH 10.76 uIU/ml (0.34-5.60) H 05/08/18 18:40 Urine Source CLEAN C 05/08/18 22:00 Urine Color YELLOW 05/08/18 22:00 Urine Clarity HAZY (CLEAR) 05/08/18 22:00 Urine pH 5.5 (4.6 - 8.0) 05/08/18 22:00 Ur Specific [place] 1.020 (1.005-1.030) 05/08/18 22:00 Urine Protein NEGATIVE mg/dL (NEGATIVE) 05/08/18 22:00 Urine Glucose (UA) NEGATIVE mg/dL (NEGATIVE) 05/08/18 22:00 Urine Ketones NEGATIVE mg/dL (NEGATIVE) 05/08/18 22:00 Urine Blood TRACE (NEGATIVE) 05/08/18 22:00 Urine Nitrate NEGATIVE (NEGATIVE) 05/08/18 22:00 Urine Bilirubin NEGATIVE (NEGATIVE) 05/08/18 22:00 Urine Urobilinogen 0.2 E.U./dL (0.2 - 1.0) 05/08/18 22:00 Ur Leukocyte Esterase MODERATE (NEGATIVE) H 05/08/18 22:00 Urine RBC 0-2 /hpf (0-5) H 05/08/18 22:00 Urine WBC 10-25 /hpf (0-5) H 05/08/18 22:00 Ur Epithelial Cells RARE /lpf (FEW) 05/08/18 22:00 Urine Bacteria MODERATE /hpf (NONE SEEN) H 05/08/18 22:00 Salicylates < 25.0 mg/L (30.0-100.0) L 05/08/18 18:40 Urine Opiates Screen POSITIVE (NEGATIVE) H 05/08/18 22:00 Urine Methadone Screen NEGATIVE (NEGATIVE) 05/08/18 22:00 Acetaminophen < 10.0 ug/mL (10.0-30.0) L 05/08/18 18:40 Ur Barbiturates Screen NEGATIVE (NEGATIVE) 05/08/18 22:00 Ur Tricyclics Screen NEGATIVE (NEGATIVE) 05/08/18 22:00 Ur Phencyclidine Scrn NEGATIVE (NEGATIVE) 05/08/18 22:00 Amphetamines Screen NEGATIVE (NEGATIVE) 05/08/18 22:00 U Methamphetamines Scrn NEGATIVE (NEGATIVE) 05/08/18 22:00 U Benzodiazepines Scrn NEGATIVE (NEGATIVE) 05/08/18 22:00 U Cocaine Metab Screen NEGATIVE (NEGATIVE) 05/08/18 22:00 U Cannabinoids Screen NEGATIVE (NEGATIVE) 05/08/18 22:00 Ethyl Alcohol < 10 mg/dL (0-10) 05/08/18 18:40 RPR NONREACTIVE (NONREACTIVE) 05/08/18 18:40 Hepatitis A IgM Ab Negative (Negative) 05/09/18 07:50 Hep Bs Antigen Negative (Negative) 05/09/18 07:50 Hep B Core IgM Ab Negative (Negative) 05/09/18 07:50 Hepatitis C Antibody <0.1 s/co ratio (0.0-0.9) 05/09/18 07:50 - Physical Exam Vitals and I&O: Vital Signs Temp 98.2 F 05/15/18 06:33 Pulse 77 05/15/18 09:14 Resp 19 05/15/18 06:33 BP 117/47 05/15/18 09:14 Pulse Ox 97 05/15/18 06:33 Intake & Output 05/14/18 05/15/18 05/15/18 18:59 06:59 18:59 Intake Total 1000 180 Balance 1000 180 Intake: Oral 1000 180 Other: # Voids 4 1 # Bowel Movements 1 0 Active Medications: Current Medications Acetaminophen (Tylenol) 650 mg PO Q4HR PRN PRN Reason: Mild Pain / Temp above 100 Stop: 07/08/18 00:28 Acetaminophen (Tylenol) 650 mg PO Q6HR PRN PRN Reason: Pain (Mild) Stop: 07/08/18 06:17 Acetaminophen/Hydrocodone Bitart ([place] 10 Mg/325 Mg) 1 tab PO Q4HR PRN PRN Reason: Pain (Moderate) Stop: 07/08/18 00:29 Al Hydrox/Mg Hydrox/Simethicone (Maalox) 30 ml PO Q4HR PRN PRN Reason: GI DISTRESS Stop: 07/08/18 00:28 Amiodarone HCl (Cordarone) 200 mg PO DAILY [facility] Stop: 07/09/18 08:59 Last Admin: 05/15/18 09:15 Dose: 200 mg Ascorbic Acid (Vitamin C) 500 mg PO TID [facility] Stop: 07/08/18 08:59 Last Admin: 05/15/18 14:22 Dose: 500 mg Aspirin (Ecotrin) 81 mg PO DAILY [facility] Stop: 07/08/18 08:59 Last Admin: 05/15/18 09:15 Dose: 81 mg Atorvastatin Calcium (Lipitor) 40 mg PO DAILY [facility] Stop: 07/08/18 08:59 Last Admin: 05/15/18 09:13 Dose: 40 mg Bisacodyl (Dulcolax 10 Mg Supp) 10 mg RC DAILY PRN PRN Reason: Constipation Stop: 07/08/18 00:29 Carvedilol (Coreg) 6.25 mg PO BIDBRS [facility] Stop: 07/08/18 07:59 Last Admin: 05/15/18 09:14 Dose: 6.25 mg Citalopram Hydrobromide (Celexa) 40 mg PO DAILY [facility] Stop: 07/08/18 08:59 Last Admin: 05/15/18 09:15 Dose: 40 mg Ferrous Sulfate (Iron) 325 mg PO TID [facility] Stop: 07/08/18 08:59 Last Admin: 05/15/18 14:21 Dose: 325 mg Furosemide (Lasix) 40 mg PO DAILY [facility] Stop: 07/08/18 08:59 Last Admin: 05/15/18 09:13 Dose: 40 mg Gabapentin (Neurontin) 100 mg PO TID [facility] Stop: 07/08/18 08:59 Last Admin: 05/15/18 14:21 Dose: 100 mg Gentamicin Sulfate (Garamycin) 112 mg IM Q24HR@1400 [facility] Stop: 05/17/18 16:00 Last Admin: 05/15/18 14:21 Dose: 112 mg Insulin Detemir (Levemir Insulin) 10 units SUBQ HS [facility] Stop: 07/08/18 20:59 Last Admin: 05/14/18 20:52 Dose: 12 unit Isosorbide Mononitrate (Imdur) 30 mg PO DAILY [facility] Stop: 07/09/18 08:59 Last Admin: 05/15/18 09:14 Dose: 30 mg Levothyroxine Sodium (Synthroid) 0.125 mg PO DAILY@0730 [facility] Stop: 07/08/18 07:29 Last Admin: 05/15/18 06:51 Dose: 0.125 mg Magnesium Hydroxide (Milk Of Magnesia) 30 ml PO HS PRN PRN Reason: Constipation Magnesium Hydroxide (Milk Of Magnesia) 30 ml PO DAILY [facility] Stop: 07/08/18 08:59 Last Admin: 05/15/18 09:15 Dose: 30 ml Miscellaneous (Gentamicin Iv Per Pharmacy) 1 ea MC PRN PRN PRN Reason: PROTOCOL Stop: 05/17/18 16:00 Miscellaneous (Clinical Monitoring) 1 ea MC DAILY PRN PRN Reason: RENAL DODSING Stop: 07/13/18 08:44 Multivitamins/Vitamin C (Theragran) 1 tab PO DAILY [facility] Stop: 07/08/18 08:59 Last Admin: 05/15/18 09:13 Dose: 1 tab Pantoprazole Sodium (Protonix) 40 mg PO DAILY@0730 [facility] Stop: 07/08/18 07:29 Last Admin: 05/15/18 06:51 Dose: 40 mg Potassium Chloride (Klor-Con) 10 meq PO DAILY [facility] Stop: 07/08/18 08:59 Last Admin: 05/15/18 09:14 Dose: 10 meq Rivaroxaban (Xarelto) 10 mg PO DAILY [facility] Stop: 07/09/18 08:59 Last Admin: 05/15/18 09:15 Dose: 10 mg Simethicone (Mylicon) 80 mg PO TID [facility] Stop: 07/08/18 08:59 Last Admin: 05/15/18 14:22 Dose: 80 mg Trazodone HCl (Desyrel) 50 mg PO HS [facility]; Protocol Stop: 07/08/18 20:59 Last Admin: 05/14/18 20:53 Dose: 50 mg Zolpidem Tartrate (Ambien) 5 mg PO HS PRN PRN Reason: Insomnia Stop: 07/08/18 00:28 General: no acute distress, well developed, well nourished HEENT: atraumatic, normocephalic, PERRLA, EOMI, moist mucous membrane Neck: supple, no thyromegaly Cardiovascular: S1S2, regular Lungs: clear to auscultation bilaterally, clear to percussion Abdomen: soft, bowel sounds, no tender, no distended, no mass, no rebound, no hepatomegaly Extremities: no cyanosis, no clubbing, no edema Neurological: awake, alert, oriented Skin: intact Infectious Disease Assmt/Plan - Assessment Assessment: 1. Pseudomonas urinary tract infection. 2. Chronic renal failure. 3. Hypothyroidism. 4. Psychosis. 5. Depression. 6. Hypertension. 7. Hyperlipidemia. 8. Elevated LFTs. 9. mass or debris in urinary bladder. - Plan Plan: Continue genta IM for 3/5 days. check ua and urine cs Urology consult as inpatient or outpatient. Nutritional Asmnt/Malnutr-PDOC - Dietary Evaluation Malnutrition Findings (Please click <Entered> for more info): Nutritional Asmnt/Malnutrition Start: 05/11/18 16: 34 Text: Status: Complete Freq: Protocol: Document 05/11/18 16:36 LCGIOVANNA (Rec: 05/11/18 16:44 AKOSUA [email or web address]) Nutritional Asmnt/Malnutrition Patient General Information Nutritional Screening Moderate Risk Diagnosis depression Pertinent Medical Hx/Surgical Hx HTn, dyslipidemia, depression Subjective Information PT seen lying in bed at time of visit, awake, stated he has good appetite, no question about food so fat. Per EMR, PO intake 75%. Current Diet Order/ Nutrition Support LCS CAMELIA Pertinent Medications vit C, lipitor, iron, lasix, levemir, synthroid, theragran, protonix, kcl Pertinent Labs 05/09 POC 150, 2 POC 192 2/5 BUN 57, Cr 2.4, Glucose 147, alb 3.7 Nutritional Hx/Data Height 1.83 m Height (Calculated Centimeters) 182.9 Current Weight (lbs) 74.843 kg Weight (Calculated Kilograms) 74.8 Weight (Calculated Grams) 05229.7 [place] Body Weight 178 Body Mass Index (BMI) 22.4 Weight Status Approriate GI Symptoms GI Symptoms None Last BM 2/3 Difficult in: None Skin Integrity/Comment: intact Current %PO Good (75-100%) Estimated Nutritional Goals BEE in Kcals: Using Current wt Calories/Kcals/Kg 25-30 Kcals Calculated 8097-2433 Protein: Using Current wt Protein g/k.7 monitor renal labs Protein Calculated 53 Fluid: ml 1875-2250ml (1ml/kcal) Nutritional Problem 1. Problem Problem altered nutrition related labs Etiology possible renal dysfunction Signs/Symptoms: BUN 57, Cr 2.4 No current Nutrition Prob Problem N/A Malnutrition Alert Is there a minimum of two criteria No selected? Query Text:Check all the applicable criteria. A minimum of two criteria are recommended for diagnosis of either severe or non-severe malnutrition. Malnutrition Related to Morbid Obesity Malnutrition related to morbid obesity No Intervention/Recommendation Comments 1. Continue with CAMELIA L[facility] diet as ordered. Verified with RN regarding LCS diet means no concerntrated sweets. 2. recommend limit protein intake d/t elevated BUN/Cr. Serve 1/2 portion meat at lunch and dinner. 3. Monitor PO intake, wt, labs and skin integrity 4. F/U as low risk in 7 days Expected Outcomes/Goals Expected Outcomes/Goals 1. PO intake to meet at least 75% of nutritional needs. 2. Wt stability, skin to remain intact, labs to approach WNL.
[2018-05-15] MEDS: Insulin Detemir 100 units/mL 10mL Vial SUBQ SCH ×2 (20:59→21:05)
--- NOTE | 2018-05-16 03:24 | Progress Notes ---
DATE: 05/15/2018 PSYCHIATRIC PROGRESS NOTE SUBJECTIVE: Staff was spoken to. The patient is interviewed. Mood is noted to be anxious. The patient's insight and judgment are noted to be improving. Impulse control is noted to be fair. No side effects to the medications are noted. The patient has been able to verbalize the concerns rather than to act out. No side effects to the medications are noted at this time. ASSESSMENT: The patient's depression is resolving. PLAN: To continue the patient with supportive therapy. I encouraged the patient to verbalize the concerns rather than to act out. JOB# [id number]
[2018-05-16] MEDS: Pantoprazole 40 mg EC Tab PO SCH (06:52)
[2018-05-16] MEDS: Levothyroxine 0.125 Mg Tab PO SCH (06:52)
[2018-05-16 08:16] LABS: ANION GAP 14.8 (7.0-16.0); BUN - UREA NITROGEN 71 mg/dL (7-25); CARBON DIOXIDE 20.9 mEq/L (21.0-31.0); CHLORIDE 106 mEq/L (98-107); CREATININE - SERUM 2.4 mg/dL (0.7-1.3); GLUCOSE 158 mg/dL (70-105); POTASSIUM SERUM 4.7 mEq/L (3.5-5.1); SODIUM SERUM 137 mEq/L (136-145)
[2018-05-16] MEDS: Magnesium Hydroxide (MOM) 30 mL UDC PO SCH (08:24)
[2018-05-16] MEDS: Ferrous Sulfate 325 MG TAB PO SCH (08:26)
[2018-05-16] MEDS: Potassium Chloride 10 mEq ER Tab PO SCH (08:27)
[2018-05-16] MEDS: Multivitamin Tab PO SCH (08:27)
--- NOTE | 2018-05-16 13:37 | Progress Notes ---
DATE: 05/16/2018 SUBJECTIVE: Staff was spoken to. The patient is interviewed. Mood is noted to be anxious. Affect is appropriate. Not suicidal or homicidal. Insight and judgment noted to be fair. Impulse control is also noted to be fair. The patient is motivated for treatment. The patient is currently on Lexapro and has been able to tolerate. ASSESSMENT: The patient is stabilizing. PLAN: To discharge the patient today for followup on outpatient basis. JOB# [id number]
[2018-05-17] MEDS ORDERED: Gentamicin 80 mg/2mL Vial IM ONE (14:00)
--- NOTE | 2018-05-17 23:47 | Progress Notes ---
DATE: 05/16/2018 PSYCHOLOGY PROGRESS NOTE SUBJECTIVE: The patient is seen and interviewed. Case is discussed with staff. The patient presents as anxious. The patient's impulse control is coming under control. The patient appears to be more goal directed. The staff indicates the patient may be discharging today. OBJECTIVE: Mood mildly anxious. Affect is appropriate. Thought process shows to be more goal oriented. The patient denied suicidal ideation, plan or intention. The patient denies any hallucinations or delusions. The patient's behavior has become more compliant with care. ASSESSMENT AND PLAN: The patient appears to be stabilizing. We will provide positive reinforcement and remotivation for the patient to stay compliant with all aspects of his care and treatment. We will encourage the patient to continue to demonstrate emotional and self-regulation with the staff at his facility. We provided coping strategies for phase of life issues. The patient may be discharging today, therefore there is no followup indicated. Thank you, Dr. Rodriguez, for this consult and the opportunity to participate in this patient's care. JOB# [id number]
== END 2018-05-16 13:50 | DRG 885 ==
LOC: ER 17:37 → GERO 23:10
DX: F33.2 Major depressive disorder, recurrent severe without psychotic features (principal); N18.3 Chronic kidney disease, stage 3 (moderate); N39.0 Urinary tract infection, site not specified; E03.9 Hypothyroidism, unspecified; E78.5 Hyperlipidemia, unspecified; E86.0 Dehydration; I12.9 Hypertensive chronic kidney disease with stage 1 through stage 4 chronic kidney disease, or unspecified chronic kidney disease; D64.9 Anemia, unspecified; B96.5 Pseudomonas (aeruginosa) (mallei) (pseudomallei) as the cause of diseases classified elsewhere; E11.22 Type 2 diabetes mellitus with diabetic chronic kidney disease; Z82.49 Family history of ischemic heart disease and other diseases of the circulatory system; Z79.4 Long term (current) use of insulin
CPT/HCPCS: 36415-UA; 76770-TC; 80048-TC; 80053-TC; 80061-TC; 80074-90; 80170-TC; 80307; 80320-TC; 80329-TC; 81001-TC; 82140-TC; 82948-90; 83036-90; 84443-TC; 84484-TC; 85025-TC; 86592-TC; 87086-90; 93005; J0696; J1580; J1815; J7030; Z7610